=== PATIENT | female | born 1925 | race Caucasian/White ===

== ENCOUNTER 2017-04-04 13:05 | Inpatient (IN) | payer MEDICARE ==
[~2017-04-04] VITALS: Ht 157.5 cm; Wt 77.1 kg
--- NOTE | 2017-04-04 13:18 | NUR ---
BBPA FROM [facility]: BILATERAL LOWER EXTREMITIES REDNESS, LLE CELLULITIS
[2017-04-04 13:46] LABS: BASOPHILS % (AUTO) 0.2 % (0.0-2.0); EOSINOPHILS % (AUTO) 0.2 % (0.0-6.0); HEMATOCRIT 30 % (33-45); HEMOGLOBIN 9.5 g/dL (11.5-14.8); LYMPHOCYTES % (AUTO) 14.9 % (20.0-44.0); MEAN CORPUSCULAR HEMOGLOBIN 27 PG (26.0-33.0); MEAN CORPUSCULAR HGB CONC 32 g/dl (31.0-36.0); MEAN CORPUSCULAR VOLUME 85 fL (82-100); MONOCYTES # (AUTO) 0.9 /CMM (0.1-1.30); MONOCYTES % (AUTO) 6.3 % (2.0-12.0); NEUTROPHILS # (AUTO) 10.7 /CMM (1.8-8.9); NEUTROPHILS % (AUTO) 78.4 % (43.0-81.0); PLATELET COUNT (AUTO) 364 /CMM (150-450); RDW COEFFICIENT OF VARIATION 17.2 (11.5-15.0); RED BLOOD CELL COUNT(AUTO) 3.52 MIL/uL (4.0-5.2); WHITE BLOOD COUNT (AUTO) 13.6 K/uL (4.3-11.0)
[2017-04-04] MEDS ORDERED: SACC250C6 PO (13:47)
[2017-04-04] MEDS ORDERED: MULT1TAB11 PO (13:47)
[2017-04-04] MEDS ORDERED: CITA20TA11 PO (13:47)
[2017-04-04] MEDS ORDERED: MAGN400T26 PO (13:47)
[2017-04-04] MEDS ORDERED: ASPI81TA2 PO (13:47)
[2017-04-04] MEDS ORDERED: TRAM50TA2 PO ×2 (13:47)
[2017-04-04] MEDS ORDERED: PANT40TA4 PO (13:47)
[2017-04-04] MEDS ORDERED: ZINC220C8 PO (13:47)
[2017-04-04] MEDS ORDERED: AMIN30LI4 PO (13:47)
[2017-04-04] MEDS ORDERED: MAGN400O6 PO (13:47)
[2017-04-04] MEDS ORDERED: NA P133E RC (13:47)
[2017-04-04] MEDS ORDERED: ACET-868 PO (13:47)
[2017-04-04] MEDS ORDERED: MEGE40TA PO (13:47)
[2017-04-04] MEDS ORDERED: ASCO500T9 PO (13:47)
[2017-04-04] MEDS ORDERED: DOCU-25 PO (13:47)
[2017-04-04] MEDS ORDERED: ACET-2605 PO (13:47)
[2017-04-04] MEDS ORDERED: BISA10SU8 RC (13:47)
[2017-04-04] MEDS ORDERED: APIX2.5T PO (13:47)
[2017-04-04] MEDS ORDERED: METO25TA20 PO (13:47)
[2017-04-04 13:53] LABS: CARBON DIOXIDE 27 mmol/L (21-32); CHLORIDE 101 mmol/L (98-107); CREATININE 0.6 mg/dL (0.6-1.3); GLUCOSE 104 mg/dL (74-106); POTASSIUM 3.6 mmol/L (3.5-5.1); SODIUM SERUM 136 mmol/L (136-145); UREA NITROGEN, BLOOD 10 mg/dL (7-18)
[2017-04-04 14:01] LABS: TROPONIN I < 0.017 ng/mL (0.00-0.056)
[2017-04-04 14:02] LABS: INR 1.42 (0.87-1.13); PROTHROMBIN TIME 14.8 SECS (9.5-12.7)
[2017-04-04 14:05] LABS: ALANINE AMINOTRANSFERASE 10 U/L (12-78); ALBUMIN 1.6 g/dL (3.4-5.0); ALKALINE PHOSPHATASE 98 U/L (46-116); ASPARTATE AMINOTRANSFERASE 13 U/L (15-37); B-TYPE NATRIURETIC PEPTIDE 1616 PG/ML (0-125); BILIRUBIN,DIRECT 0.3 mg/dL (0.0-0.2); BILIRUBIN,TOTAL 0.6 mg/dL (0.2-1.0); TOTAL PROTEIN, SERUM 5.5 g/dL (6.4-8.2)
[2017-04-04] MEDS ORDERED: VANCOMYCIN 1 GM in IV D5W 250 ML IV ONE (14:30)
[2017-04-04] MEDS ORDERED: CEFEPIME 1 GM in IV D5W 50 ML IV ONE (14:30)
--- NOTE | 2017-04-04 15:21 | NUR ---
GAVE REPORT TO CLAUDIA PINEDA MEDSURG CELLULITIS DR MARQUEZ ROOM 315
[2017-04-04 15:30] VITALS: BP 145/72
[2017-04-04] MEDS ORDERED: FEE PK DOSING 1 MIN EA MC ONE (18:08)
[2017-04-04] MEDS ORDERED: LEVOFLOXACIN 500 MG /D5W 100ML 500 MG in PREMIX 1 EA IV ONE (18:30)
[2017-04-04] MEDS ORDERED: ONDANSETRON HCL/PF 4 MG/2 ML VIAL IVP PRN (18:30)
--- NOTE | 2017-04-04 19:20 | NUR ---
RN NOTES: PATIENT RECIEVED FROM ER. REPORT GIVEN BY ANA MARIA. PATIENT WAS ON OUR UNIT AT 1530. PATIENT STABLE. ALERT ORIENTED X3, WITH PERIODS OF CONFUSION. VS WNL. NONLABORED BREATHING ON ROOM AIR. PATIENT REFUSED FULL BODY ASSESSMENT. PATIENT REFUSED TO HAVE LEFT LOWER EXTREMITY ASSESSED AND REFUSED TO HAVE PICTURE TAKEN. PATIENT REFUSED TO HAVE CULTURE TAKEN OF WOUND, AND STATED "LEAVE ME ALONE! DONT TOUCH ME!". DR SEPULVEDA AWARE OF PATIENT'S ADMISSION AND LABS. DR SEPULVEDA ORDERED CARDIAC DIET. PATIENT REFUSED DINNER ORDERED. PATIENT WAS OFFERED LULU AND JUICE. SHE CONSUMED SIPS AND REFUSED. PATIENT KEPT CLEAN AND DRY. ENDORSED TO NEXT SHIFT
--- NOTE | 2017-04-04 19:30 | NUR ---
RN NOTES PATIENT IN BED ALERT ORIENTED X3, WITH PERIODS OF CONFUSION. VS STABLE.NO /O PAIN AT THIS TIME. RESPIRATIONS EVEN AND UNLABORED. NO SOB NOTED. IV ACCESS ON LUE PATENT AND INTACT. NO REDNESS AND INFILTRATION NOTED. STARTING MEDICATIONS PER MD ORDER. BED IN LOW POSITION. SIDE RAILSX2. CALL LIGHT WITHIN EASY REACH. WILL CONTINUE TO MONITOR.
[2017-04-04] MEDS: IV NS 0.9% 1,000 ML IV PRN (19:50)
[2017-04-04 20:00] VITALS: BP 147/61
[2017-04-04] MEDS ORDERED: ENOXAPARIN SODIUM 30 MG/0.3 ML DISP.SYRIN SQ SCH (20:00)
--- NOTE | 2017-04-04 21:05 | NUR ---
RN NOTES CLARIFIED WITH DR. SEPULVEDA LOVENOX ORDER. PER MD VELÁSQUEZ TO GIVE LOVENOX 30 MG SQ.
--- NOTE | 2017-04-05 07:00 | NUR ---
RN CLOSING NOTES PATIENT IS IN BED SLEEPING ALERT ORIENTED X3, WITH PERIODS OF CONFUSION. VS STABLE. NO /O PAIN AT THIS TIME. RESPIRATIONS EVEN AND UNLABORED. NO SOB NOTED. IV ACCESS ON LUE PATENT AND INTACT. INFUSING NS 75 ML/HR. NO REDNESS AND INFILTRATION NOTED. ALL MEDICATIONS GIVING PER MD ORDER. BED IN LOW POSITION. SIDE RAILSX2. CALL LIGHT WITHIN EASY REACH. WILL ENDORSE TO RN DAY SHIFT FOR CONTINUITY OF CARE.
--- NOTE | 2017-04-05 07:20 | NUR ---
MS RN OPENING NOTES PT RECEIVED AWAKE IN BED IN NO ACUTE SIGNS OF DISTRESS. A/O X3, SAME VERBALLY RESPONSIVE, DENIES PAIN OR DISCOMFORTS AT THIS TIME. ON ROOM AIR, BREATHING EVEN AND UNLABORED. IV ACCESS ON CANDIS INTACT AND PATENT WITH IVF OF NS @ 75ML INFUSING WELL, NO SIGNS OF INFILTRATION NOTED. BED IN LOW AND LOCKED POSITION WITH SIDE-RAILS UP X 2. CALL LIGHT WITHIN REACH. WILL CONTINUE TO MONITOR ACCORDINGLY.
[2017-04-05] MEDS ORDERED: PANTOPRAZOLE 40 MG TABLET.DR PO SCH (07:30)
[2017-04-05 08:00] VITALS: BP 155/65
--- NOTE | 2017-04-05 08:58 | NUR ---
WOUND CARE CONSULT: PT SCREAMING AND AGITATED, REFUSED SKIN ASSESSMENT. PT NOTED TO HAVE DEEP TISSUE INJURY INTACT TO LEFT HEEL AND WEEPING AREAS TO LEFT LATERAL HIP AND THIGH. PT WOULD NOT ALLOW REMOVAL OF LEFT LOWER LEG DRESSING AND WOULD NOT TURN FOR FULL SKIN ASSESSMENT. RECOMMENDATIONS MADE BASED ON PHOTO AND NURSING DOCUMENTATION. ISOFLEX LOW AIRLOSS BED TO BE PLACED. DISCUSSED ALL SKIN PROTECTION AND WOUND RECOMMENDATIONS WITH NURSING STAFF. WILL SEE PRN. FROST IN AGREEMENT WITH PLAN OF CARE. Addendum: 04/05/17 at 0906 by ALEJO COOK WNDNU PT NOTED TO HAVE 3+ PITTING EDEMA TO LOWER LEGS. LEGS ELEVATED.
--- NOTE | 2017-04-05 09:12 | NUR ---
RN NOTES SEEN BY WOUND NURSE BUT PT WAS AGITATED AND NON-COOPERATIVE, SAME REFUSED FULL SKIN ASSESSMENT. WILL CONTINUE TO MONITOR
[2017-04-05] MEDS: DOCUSATE SODIUM 100 MG CAPSULE PO SCH ×2 (09:30→17:00)
[2017-04-05] MEDS: METOPROLOL TARTRATE 25 MG TABLET PO SCH ×2 (09:30→17:25)
[2017-04-05] MEDS ORDERED: MAGNESIUM HYDROXIDE 30 ML UDC PO PRN (09:30)
[2017-04-05] MEDS ORDERED: Medication Not On Formulary EA (Saccharomyces Boulardii (Florastor) 250 MG) PO SCH (09:30)
[2017-04-05] MEDS ORDERED: Z GUARD REMEDY 2 OZ OINT TP PRN (09:30)
[2017-04-05] MEDS: APIXABAN 2.5 MG TABLET PO SCH ×2 (09:30→21:26)
[2017-04-05] MEDS: MAGNESIUM OXIDE 400 MG TABLET PO SCH (09:30)
[2017-04-05] MEDS: ZINC SULFATE 220 MG CAPSULE PO SCH (09:30)
[2017-04-05] MEDS ORDERED: HYDROGEL DRESSING 90 GM TUBE TP PRN (09:30)
[2017-04-05] MEDS: ASCORBIC ACID 500 MG TABLET PO SCH ×2 (09:30→17:00)
[2017-04-05] MEDS: PANTOPRAZOLE 40 MG TABLET.DR PO SCH (09:30)
[2017-04-05] MEDS: MEGESTROL ACETATE 40 MG TABLET PO SCH ×4 (09:30→21:11)
[2017-04-05] MEDS ORDERED: NA PHOS,M-B/NA PHOS,DI-BA 1 EA ENEMA RC PRN (09:30)
[2017-04-05] MEDS ORDERED: BISACODYL SUPP (10 MG) 10 MG/SUPP.RECT SUPP.RECT RC PRN (09:30)
[2017-04-05] MEDS ORDERED: ACETAMINOPHEN 325 MG TABLET PO PRN (09:30)
[2017-04-05] MEDS: CITALOPRAM HYDROBROMIDE 20 MG TABLET PO SCH (10:30)
[2017-04-05] MEDS: ASPIRIN 81 MG TAB.CHEW PO SCH (10:30)
[2017-04-05] MEDS: TRAMADOL HCL 50 MG TABLET PO SCH (10:30)
[2017-04-05] MEDS: Z GUARD REMEDY 2 OZ OINT TP SCH (10:32)
--- NOTE | 2017-04-05 11:55 | NUR ---
RN NOTES PATIENT REFUSED MOST OF HER MORNING P.O. MEDS DESPITE ENCOURAGEMENT AND EXPLAINING THE BENEFITS/IMPORTANCE OF TAKING THEM. WILL CONTINUE TO MONITOR.
[2017-04-05] MEDS: HYDROGEL DRESSING 90 GM TUBE TP SCH (11:56)
[2017-04-05 12:44] LABS: CALCIUM, SERUM 7.7 mg/dL (8.5-10.1); CARBON DIOXIDE 24 mmol/L (21-32); CHLORIDE 102 mmol/L (98-107); CREATININE 0.4 mg/dL (0.6-1.3); GLUCOSE 94 mg/dL (74-106); MAGNESIUM 1.5 mg/dL (1.8-2.4); PHOSPHORUS 2.7 mg/dL (2.5-4.9); POTASSIUM 3.3 mmol/L (3.5-5.1); SODIUM SERUM 134 mmol/L (136-145); UREA NITROGEN, BLOOD 7 mg/dL (7-18)
--- NOTE | 2017-04-05 13:55 | NUR ---
RN NOTES PT NOTED WITH LOW MG 1.5 AND TO BE REPLACED WITH 1MG/100ML D5W X 2 BAGS. LOW POTASSIUM 3.3 AND TO BE REPLACED WITH KLOR CON POWDER 20MEQ. WILL CONTINUE TO MONITOR.
[2017-04-05] MEDS ORDERED: POTASSIUM CHLORIDE 20 MEQ POWDER PACKET NG SCH (14:00)
[2017-04-05] MEDS: Magnesium 1GM/D5W 100ML PREMIX 100 ML IV SCH ×2 (14:06→15:03)
[2017-04-05] MEDS ORDERED: VANCOMYCIN 0.75 GM in IV D5W 250 ML IV SCH (15:00)
[2017-04-05 16:00] VITALS: BP 138/60
[2017-04-05] MEDS: VANCOMYCIN 1 GM in IV D5W 250 ML IV SCH (16:17)
[2017-04-05] MEDS: LACTOBACILLUS RHAMNOSUS GG 1 EACH CAP.SPRINK PO SCH (17:00)
--- NOTE | 2017-04-05 19:37 | NUR ---
MS RN CLOSING NOTES PT AWAKE AND RESTING IN BED AT MODERTAE HIGH BACK REST POSITION. A/O X3, SAME VERBALLY RESPONSIVE. PT CONFUSED AT TIMES AND NON-COOPERATIVE WITH CARE. ON ROOM AIR, TOLERATING WELL WITH NO SOB NOTED DURING THE DAY. IV ACCESS ON CANDIS INTACT AND PATENT WITH IVF OF NS @ 75ML INFUSING WELL, NO SIGNS OF INFILTRATION NOTED. KEPT BED IN LOW AND LOCKED POSITION WITH SIDE-RAILS UP X 2. CALL LIGHT WITHIN REACH. ENDORSED TO NIGHTSHIFT NURSE FOR KYUNG.
--- NOTE | 2017-04-05 19:50 | NUR ---
RN OPENING NOTES RECEIVED REPORT FROM ANNIEIAFT RNALTAGRACIA. FOUND PT AWAKE IN BED. NO S/S OF ACUTE DISTRESS OR SOB NOTED. EQUAL CHEST RISE AND FALL. Pt IS A/OX2-3, CONFUSED AT TIMES, AND FORGETFUL, BUT IS VERBAL, ABLE TO MAKE NEEDS KNOWN. Pt IS PALA, NEED TO SPEAK UP CLOSE. IV ACCESS ON LAC #20G, IVF NS @75ML/HR. SAFETY MEASURES IN PLACE. BED LOW, LOCKED, HOB ELEVATED, SIDE RAILS UP, CALL LIGHT WITHIN REACH. BED ALARM ON. WILL CONTINUE TO MONITOR Pt FOR SAFETY.
[2017-04-05 20:00] VITALS: BP 163/63
[2017-04-05] MEDS: LEVOFLOXACIN 250 MG /D5W 50 ML 250 MG in PREMIX 1 EA IV SCH (21:10)
[2017-04-05 23:03] LABS: BASOPHILS % (AUTO) 0.3 % (0.0-2.0); EOSINOPHILS % (AUTO) 0.3 % (0.0-6.0); HEMATOCRIT 25 % (33-45); HEMOGLOBIN 8.1 g/dL (11.5-14.8); LYMPHOCYTES # (AUTO) 1.6 /CMM (0.8-4.8); LYMPHOCYTES % (AUTO) 22.2 % (20.0-44.0); MEAN CORPUSCULAR HEMOGLOBIN 27 PG (26.0-33.0); MEAN CORPUSCULAR HGB CONC 32 g/dl (31.0-36.0); MEAN CORPUSCULAR VOLUME 83 fL (82-100); MONOCYTES # (AUTO) 0.5 /CMM (0.1-1.30); NEUTROPHILS # (AUTO) 4.9 /CMM (1.8-8.9); NEUTROPHILS % (AUTO) 70.2 % (43.0-81.0); PLATELET COUNT (AUTO) 306 /CMM (150-450); RED BLOOD CELL COUNT(AUTO) 3.01 MIL/uL (4.0-5.2)
--- NOTE | 2017-04-06 06:54 | NUR ---
RN CLOSING NOTES NO SIGNIFICANT CHANGES IN Pt's CONDITION. Pt REMAINS STABLE AT THIS TIME. NO S/S OF ACUTE DISTRESS OR SOB NOTED DURING SHIFT. ALL NEEDS MET AND ATTENDED TO. SAFETY MEASURES IN PLACE. WILL ENDORSE TO DAYSHIFT RN FOR Pt's KYUNG.
--- NOTE | 2017-04-06 07:23 | NUR ---
MS/RN OPENING NOTES PT RECEIVED AWAKE IN BED IN NO ACUTE SIGNS OF DISTRESS. HOB ELEVATED. A/O X3, VERBALLY RESPONSIVE, CONFUSED AND FORGETFUL, DENIES PAIN OR DISCOMFORTS AT THIS TIME. ON ROOM AIR, BREATHING EVEN AND UNLABORED. IV ACCESS ON CANDIS INTACT AND PATENT WITH IVF OF NS @ 75ML INFUSING WELL, NO SIGNS OF INFILTRATION NOTED. BED IN LOW AND LOCKED POSITION WITH SIDE-RAILS UP X 2. CALL LIGHT WITHIN REACH. WILL CONTINUE TO MONITOR PT ACCORDINGLY.
[2017-04-06] MEDS: IV NS 0.9% 1,000 ML IV PRN (07:59)
[2017-04-06 08:00] VITALS: BP 163/65
[2017-04-06] MEDS: APIXABAN 2.5 MG TABLET PO SCH ×2 (08:31→21:00)
[2017-04-06] MEDS: ASPIRIN 81 MG TAB.CHEW PO SCH (08:32)
[2017-04-06] MEDS: MAGNESIUM OXIDE 400 MG TABLET PO SCH (08:32)
[2017-04-06] MEDS: PANTOPRAZOLE 40 MG TABLET.DR PO SCH (08:32)
[2017-04-06] MEDS: METOPROLOL TARTRATE 25 MG TABLET PO SCH ×2 (08:33→16:38)
[2017-04-06] MEDS: TRAMADOL HCL 50 MG TABLET PO SCH (08:34)
[2017-04-06] MEDS: CITALOPRAM HYDROBROMIDE 20 MG TABLET PO SCH (08:37)
[2017-04-06] MEDS: ZINC SULFATE 220 MG CAPSULE PO SCH (08:39)
[2017-04-06] MEDS: LACTOBACILLUS RHAMNOSUS GG 1 EACH CAP.SPRINK PO SCH ×2 (08:39→16:38)
[2017-04-06] MEDS: MEGESTROL ACETATE 40 MG TABLET PO SCH ×4 (08:41→21:00)
[2017-04-06] MEDS: MULTIVIT, IRON, MIN NO. 8, FA 1 TAB PO SCH (08:41)
[2017-04-06] MEDS: ASCORBIC ACID 500 MG TABLET PO SCH ×2 (08:41→16:38)
[2017-04-06] MEDS: DOCUSATE SODIUM 100 MG CAPSULE PO SCH ×2 (08:41→16:38)
[2017-04-06] MEDS: Z GUARD REMEDY 2 OZ OINT TP SCH (09:40)
[2017-04-06] MEDS: NEOMY SULF/BACITRAC ZN/POLY 15 GM TUBE TP SCH (09:40)
[2017-04-06] MEDS: HYDROGEL DRESSING 90 GM TUBE TP SCH (09:40)
[2017-04-06 12:12] LABS: CALCIUM, SERUM 7.8 mg/dL (8.5-10.1); CARBON DIOXIDE 25 mmol/L (21-32); CHLORIDE 102 mmol/L (98-107); CREATININE 0.4 mg/dL (0.6-1.3); GLUCOSE 85 mg/dL (74-106); MAGNESIUM 1.8 mg/dL (1.8-2.4); POTASSIUM 3.2 mmol/L (3.5-5.1); SODIUM SERUM 136 mmol/L (136-145); UREA NITROGEN, BLOOD 4 mg/dL (7-18)
--- NOTE | 2017-04-06 13:03 | NUR ---
RN NOTES PATIENT NOTED WITH LOW POTASSIUM LEVEL 3.2, MD MADE AWARE WITH ORDER TO GIVE KCL 40MEQ IVPB. WILL CONTINUE TO MONITOR
[2017-04-06] MEDS: POTASSIUM CL. PREMIX PERIPHER. 50 ML IV SCH ×4 (14:00→17:58)
[2017-04-06] MEDS ORDERED: MORPHINE SULFATE INJ 2 MG/ML DISP.SYRIN IV PRN (15:00)
[2017-04-06] MEDS ORDERED: MORPHINE SULFATE INJ 10 MG/ML DISP.SYRIN IV PRN (15:30)
[2017-04-06 16:00] VITALS: BP 157/70
[2017-04-06] MEDS: VANCOMYCIN 1 GM in IV D5W 250 ML IV SCH (16:17)
--- NOTE | 2017-04-06 18:52 | NUR ---
M/RN CLOSING NOTES PT RESTING AT MODERATE HIGH BACKREST IN BED. A/O X2-3, SAME VERBALLY RESPONSIVE WITH PERIODS OF CONFUSION AND FORGETFULNESS NOTED DURING THE DAY. ON ROOM AIR, TOLERATING WELL WITH NO SOB NOTED THROUGHOUT THE DAY. IV ACCESS ON LAC INTACT AND PATENT WITH IVF OF NS @ 75ML INFUSING WELL, NO SIGNS OF INFILTRATION NOTED. KEPT BED IN LOW AND LOCKED POSITION WITH SIDE-RAILS UP X 2. CALL LIGHT WITHIN REACH. PT TURNED AND REPOSITIONED Q 2HRS AND PRN. WILL ENDORSED TO NIGHTSHIFT NURSE FOR KYUNG.
--- NOTE | 2017-04-06 19:45 | NUR ---
RN OPENING NOTES RECEIVED REPORT FROM DAYSHIFT MIRIAM FRIAS. FOUND Pt ASLEEP IN BED. NO S/S OF ACUTE DISTRESS OR SOB NOTED. EQUAL CHEST RISE AND FALL, WITH UNLABORED BREATHING. Pt IS A/OX2-3, CONFUSED AT TIMES, BUT IS VERBAL, AND ABLE TO MAKE NEEDS KNOWN. NO SIGNS OF PAIN AT THIS TIME. Pt HAS BEEN KNOWN TO BE NON-COMPLIANT WITH PO MEDS. IV ACCESS ON LAC #20G, IVF NS @75ML/HR. SAFETY MEASURES IN PLACE. BED LOW, LOCKED, HOB ELEVATED, SIDE RAILS UP, CALL LIGHT AND BEDSIDE TABLE WITHIN REACH. WILL CONTINUE TO MONITOR Pt THROUGHOUT THE NIGHT FOR SAFETY.
[2017-04-06 20:00] VITALS: BP 139/72
[2017-04-06] MEDS: LEVOFLOXACIN 250 MG /D5W 50 ML 250 MG in PREMIX 1 EA IV SCH (21:30)
[2017-04-07] MEDS: IV NS 0.9% 1,000 ML IV PRN (03:21)
--- NOTE | 2017-04-07 06:43 | NUR ---
RN CLOSING NOTES NO SIGNIFICANT CHANGES IN Pt's CONDITION DURING THE SHIFT. Pt REMAINS STABLE. NO S/S OF ACUTE DISTRESS OR SOB NOTED DURING THE NIGHT. ALL NEEDS MET AND ATTENDED TO. SAFETY MEASURES IN PLACE. WILL ENDORSE TO DAYSHIFT RN FOR Pt's KYUNG.
--- NOTE | 2017-04-07 07:35 | NUR ---
RN OPENING NOTES PT. IN BED A&OX1-2, CONFUSED. NO S/S OF SOB, BREATHING ON ROOM AIR UNLABORED, AND EVENLY. IV FLUIDS RUNNING. BED IS IN LOWEST, LOCKED POSITION, 2 SIDE RAILS UP, AND INSTRUCTED PT. TO USE CALL LIGHT FOR ASSISTANCE. WILL CONTINUE TO ASSESS AND MONITOR.
[2017-04-07] MEDS: ASCORBIC ACID 500 MG TABLET PO SCH ×2 (09:00→18:31)
[2017-04-07] MEDS: MULTIVIT, IRON, MIN NO. 8, FA 1 TAB PO SCH (09:00)
[2017-04-07] MEDS: Z GUARD REMEDY 2 OZ OINT TP SCH (09:00)
[2017-04-07] MEDS: ZINC SULFATE 220 MG CAPSULE PO SCH (11:20)
[2017-04-07] MEDS: MEGESTROL ACETATE 40 MG TABLET PO SCH ×4 (11:20→21:00)
[2017-04-07] MEDS: DOCUSATE SODIUM 100 MG CAPSULE PO SCH ×2 (11:20→17:00)
[2017-04-07] MEDS: MAGNESIUM OXIDE 400 MG TABLET PO SCH (11:20)
[2017-04-07] MEDS: CITALOPRAM HYDROBROMIDE 20 MG TABLET PO SCH (11:20)
[2017-04-07] MEDS: ASPIRIN 81 MG TAB.CHEW PO SCH (11:21)
[2017-04-07] MEDS: TRAMADOL HCL 50 MG TABLET PO SCH (11:21)
[2017-04-07] MEDS: PANTOPRAZOLE 40 MG TABLET.DR PO SCH (11:21)
[2017-04-07] MEDS: LACTOBACILLUS RHAMNOSUS GG 1 EACH CAP.SPRINK PO SCH ×2 (11:21→17:00)
[2017-04-07] MEDS: APIXABAN 2.5 MG TABLET PO SCH ×2 (11:22→18:38)
[2017-04-07] MEDS: METOPROLOL TARTRATE 25 MG TABLET PO SCH ×2 (11:22→17:00)
[2017-04-07] MEDS: NEOMY SULF/BACITRAC ZN/POLY 15 GM TUBE TP SCH (11:23)
[2017-04-07] MEDS: HYDROGEL DRESSING 90 GM TUBE TP SCH (11:23)
[2017-04-07 16:00] VITALS: BP 144/55
--- NOTE | 2017-04-07 16:00 | NUR ---
RN NOTES WOUND CARE AND DRESSING CHANGE WAS PERFORMED PER MD ORDERS.
[2017-04-07] MEDS: VANCOMYCIN 1 GM in IV D5W 250 ML IV SCH (16:42)
--- NOTE | 2017-04-07 17:30 | NUR ---
RN NOTES PT. REFUSED HAVING BLOOD DRAWN FOR LAB WORK.
[2017-04-07] MEDS: PIPERACILLIN /TAZOBACTAM 2.25 G in IV D5W 50 ML IV SCH ×2 (18:23→23:42)
--- NOTE | 2017-04-07 19:35 | NUR ---
RN CLOSING NOTES PT. IN BED A&OX1-2, CONFUSED. NO S/S OF SOB, BREATHING ON ROOM AIR UNLABORED, AND EVENLY.IV FLUIDS RUNNING. BED IS IN LOWEST, LOCKED POSITION, 2 SIDE RAILS UP, AND INSTRUCTED PT. TO USE CALL LIGHT FOR ASSISTANCE. WILL CONTINUE TO ASSESS AND MONITOR.
--- NOTE | 2017-04-07 19:49 | NUR ---
MS/RN OPENING NOTES PATIENT IN BED, RESTING COMFORTABLY IN BED, ABLE TO RESPOND WITH SHORT ANSWER AND STATED SHE WANT TO REST AND NOT TO BE DISTURB AT THIS TIME.RESPIRATION EVEN AND UNLABORED. RECEIVED ENDORSEMENT FROM AM RN . ISOLATION PRECAUTION FOLLOWED FOR ESBL URINE HX. WILL CONTINUE TO MONITOR.
--- NOTE | 2017-04-07 20:10 | NUR ---
MS/RN NOTES DR COLVIN WAS MADE AWARE REGARDING PATIENT NON COMPLIANT TO CARE, REFUSE TO HAVE VITAL SIGNS BE CHECK, REFUSE PO ORAL MEDS,PROVIDED EDUCATION REGARDING PROS/CON OF NOT TAKING THE MED. PATIENT VERBALIZED UNDERSTANDING, WILL MONITOR FOR ANY CHANGES.
--- NOTE | 2017-04-08 02:29 | NUR ---
ms/rn notes PATIENT REFUSED TO BE REPOSITION AND TO HAVE WOUND TREATMENT. INFORM THE RISK/BENEFIT. VERBALIZED UNDERSTANDING. WILL CHECK AND ASK AGAIN.
--- NOTE | 2017-04-08 04:39 | NUR ---
MS/RN NOTES PATIENT PROVIDED WARM BLANKET, ELEVATED FEET AND ASKED AGAIN IF CAN DO WOUND CARE DRESSING ON LEFT LEG, PATIENT VERBALIZED W/ LOUD SCREAM, "NO" AND UNABLE TO PROVIDE CARE AT THIS TIME. WILL MONITOR. INFORMED CHARGED NURSE RE SITUATION,
[2017-04-08] MEDS: PIPERACILLIN /TAZOBACTAM 2.25 G in IV D5W 50 ML IV SCH ×3 (05:13→17:05)
--- NOTE | 2017-04-08 06:26 | NUR ---
MS/RN NOTES PATIENT REFUSED TO HAVE LAB DRAW THIS AM, WILL FOLLOW UP WITH AM RN FOR SON TO BE MADE AWARE.
--- NOTE | 2017-04-08 06:31 | NUR ---
MS/RN NOTES PATIENT RESTING COMFORTABLY IN BED. SLEPT DURING THE NIGHT. MONITORING FOR ANY CHANGES AND IV ATB ADMINISTERES. REFUSE TO TAKE PO MEDICATIONS. MD MADE AWARE. IN ON LEFT AC W/ NO S/S OF INFILTRATION,INFORM PATIENT TO HAVE ARM EXTENSDED FOR IV TO CONTINUE RUNNING. MONITORING PATIENT AND TWILL ENDORSE AM RN FOR YKUNG.
[2017-04-08] MEDS: PANTOPRAZOLE 40 MG TABLET.DR PO SCH ×2 (07:30→11:12)
[2017-04-08] MEDS: METOPROLOL TARTRATE 25 MG TABLET PO SCH ×3 (09:00→16:57)
[2017-04-08] MEDS: DOCUSATE SODIUM 100 MG CAPSULE PO SCH ×3 (09:00→16:56)
[2017-04-08] MEDS: ZINC SULFATE 220 MG CAPSULE PO SCH ×2 (09:00→11:11)
[2017-04-08] MEDS: MULTIVIT, IRON, MIN NO. 8, FA 1 TAB PO SCH ×2 (09:00→11:12)
[2017-04-08] MEDS: TRAMADOL HCL 50 MG TABLET PO SCH ×2 (09:00→11:13)
[2017-04-08] MEDS: ASPIRIN 81 MG TAB.CHEW PO SCH ×2 (09:00→11:14)
[2017-04-08] MEDS: ASCORBIC ACID 500 MG TABLET PO SCH ×3 (09:00→16:57)
[2017-04-08] MEDS: LACTOBACILLUS RHAMNOSUS GG 1 EACH CAP.SPRINK PO SCH ×3 (09:00→16:57)
[2017-04-08] MEDS: MAGNESIUM OXIDE 400 MG TABLET PO SCH ×2 (09:00→11:14)
[2017-04-08] MEDS: MEGESTROL ACETATE 40 MG TABLET PO SCH ×5 (09:00→21:00)
--- NOTE | 2017-04-08 09:18 | NUR ---
RN Notes Patient still prefers to sleep; breakfast and medications not taken yet. Taking Vital signs refused too at this time. Dr Mcdermott was at the bedside around 8 AM, made him aware of the patient's non compliance to medication, nursing procedures as well as plan of care. Will cont to offer patient medication, food and care later.
[2017-04-08] MEDS: CITALOPRAM HYDROBROMIDE 20 MG TABLET PO SCH (11:11)
[2017-04-08] MEDS: HYDROGEL DRESSING 90 GM TUBE TP SCH (11:15)
[2017-04-08] MEDS: Z GUARD REMEDY 2 OZ OINT TP SCH (11:16)
[2017-04-08] MEDS: NEOMY SULF/BACITRAC ZN/POLY 15 GM TUBE TP SCH (11:16)
[2017-04-08] MEDS: APIXABAN 2.5 MG TABLET PO SCH ×2 (11:20→21:40)
--- NOTE | 2017-04-08 19:19 | NUR ---
RN Notes Resting well with no complain at this time. Needs anticipated. No untoward symptom noted within the shift. Will endorse to night time babysitter nurse for continuity of care.
--- NOTE | 2017-04-08 19:30 | NUR ---
MS/RN RECEIVE PATIENT AWAKE, ALERT, ORIENTED, COMFORTABLE, NO C/O PAIN, NO DISTRESS NOTED, CALL LIGHT IN REACH. FALL PRECAUTION PER PROTOCOL.
[2017-04-08 20:00] VITALS: BP 146/57
--- NOTE | 2017-04-08 23:02 | NUR ---
MS/RN PATIENT IS SLEEPING AT THIS TIME, AROUSABLE, APPEAR COMFORTABLE, BREATHING EVEN AND UNLABORED, CALL LIGHT WITHIN REACH. WILL CONTINUE TO MONITOR.
[2017-04-09] MEDS: PIPERACILLIN /TAZOBACTAM 2.25 G in IV D5W 50 ML IV SCH ×3 (00:14→11:22)
--- NOTE | 2017-04-09 04:54 | NUR ---
MS/RN MORNING CARE WAS DONE, TOTAL LINEN CHANGE DONE, REPOSITIONED TO COMFORT. WILL CONTINUE TO MONITOR.
--- NOTE | 2017-04-09 06:17 | NUR ---
MS/RN PATIENT AWAKE, ALERT, COMFORTABLE, NO CHANGE IN CONDITION. PATIENT MOST OF THE TIME REFUSED TO CHANGE POSITION. ALL NEEDS ATTENDED AT THIS TIME. WILL CONTINUE TO MONITOR.
--- NOTE | 2017-04-09 06:30 | NUR ---
MS/RN PATIENT REFUSED BLOOD DRAW. DANCE PROFESSOR WILL COME BACK TO F/U.
[2017-04-09 08:00] VITALS: BP 167/72
--- NOTE | 2017-04-09 08:02 | NUR ---
MS RN: INITIAL NOTE RECEIVED PT A/OX1. NON-COMPLIANT AND DOES NOT WANT LABS TO BE DRAWN. ALL RISKS AND BENEFITS EXPLAINED. ON ROOM AIR SATING AT 97%. MECHANICAL SOFT DIET. HL ON L HAND. NO IV FLUIDS RUNNING. NO DISTRESS. NO PAIN NOTED. ON CONTACT ISOLATION FOR ESBL OF WOUND. RESTING COMFORTABLY IN BED. CALL LIGHT WITHIN REACH.
[2017-04-09] MEDS: APIXABAN 2.5 MG TABLET PO SCH (08:38)
[2017-04-09] MEDS: PANTOPRAZOLE 40 MG TABLET.DR PO SCH (08:38)
[2017-04-09] MEDS: MULTIVIT, IRON, MIN NO. 8, FA 1 TAB PO SCH (08:39)
[2017-04-09] MEDS: TRAMADOL HCL 50 MG TABLET PO SCH (08:39)
[2017-04-09] MEDS: ASPIRIN 81 MG TAB.CHEW PO SCH (08:39)
[2017-04-09] MEDS: MEGESTROL ACETATE 40 MG TABLET PO SCH ×2 (08:39→12:23)
[2017-04-09] MEDS: CITALOPRAM HYDROBROMIDE 20 MG TABLET PO SCH (08:39)
[2017-04-09] MEDS: DOCUSATE SODIUM 100 MG CAPSULE PO SCH (08:39)
[2017-04-09 08:40] VITALS: BP 167/72
[2017-04-09] MEDS: ASCORBIC ACID 500 MG TABLET PO SCH (08:40)
[2017-04-09] MEDS: LACTOBACILLUS RHAMNOSUS GG 1 EACH CAP.SPRINK PO SCH (08:40)
[2017-04-09] MEDS: MAGNESIUM OXIDE 400 MG TABLET PO SCH (08:40)
[2017-04-09] MEDS: ZINC SULFATE 220 MG CAPSULE PO SCH (08:40)
[2017-04-09] MEDS: METOPROLOL TARTRATE 25 MG TABLET PO SCH (08:40)
[2017-04-09] MEDS: Z GUARD REMEDY 2 OZ OINT TP SCH (08:41)
[2017-04-09] MEDS: NEOMY SULF/BACITRAC ZN/POLY 15 GM TUBE TP SCH (08:41)
[2017-04-09] MEDS: HYDROGEL DRESSING 90 GM TUBE TP SCH (08:50)
[2017-04-09] MEDS ORDERED: CADEXOMER IODINE 40 GM TUBE TP SCH (09:00)
--- NOTE | 2017-04-09 10:00 | NUR ---
WOUND CARE DONE ORDERED BY .
--- NOTE | 2017-04-09 16:08 | NUR ---
MS RN: DISCHARGE NOTE PT DISCHARGED TO [facility] FOR CONTINUING OF CARE. ON CONTACT ISOLATION FOR ESBL OF WOUND. PT A/OX1. CONFUSED. TOOK ALL MEDICATIONS ON TIME. NO ADVERSE REACTIONS NOTED. NO PAIN NOTED. NO SOB NOTED. ON ROOM AIR SATING AT 96%. WOUND CARE DONE ON L.LOWER LEG, SACRA, HEEL AND L HIP/THIGH. ALL DRESSING INTACT AND IN PLACE. HL ON L HAND #24 D/C. SITE CLEAR, NO BLEEDING, NO INFILTRATION NOTED. ALL DISCHARGE SUMMARIES AND BELONGINGS LIST SIGNED BY TWO RNS DUE TO PTS INABILITY TO SIGN. ALL DISCHARGE INFORMATION GIVEN TO EMT TO DELIVER TO SNF. NOTIFIED SON BILL ABOUT TRANSFER. ALL BELONGINGS ACCOUNTED FOR. HOME MEDS GIVEN TAKEN FROM HOSPITAL PHARMACY AND GIVEN TO EMT. REPORT GIVEN TO NAVI (MIRIAM) IN [facility]. LEFT VIA AMBULANCE WITH TWO EMT.
== END 2017-04-09 16:00 | DRG 871 ==
LOC: ER 13:09 → MED 15:03
PROVIDERS: ADMIT Legal Medicine; ATTEND Legal Medicine
DX: A41.9 Sepsis, unspecified organism (principal); R53.2 Functional quadriplegia; G93.41 Metabolic encephalopathy; L89.159 Pressure ulcer of sacral region, unspecified stage; E44.0 Moderate protein-calorie malnutrition; I11.0 Hypertensive heart disease with heart failure; D68.59 Other primary thrombophilia; I50.32 Chronic diastolic (congestive) heart failure; E88.09 Other disorders of plasma-protein metabolism, not elsewhere classified; L03.116 Cellulitis of left lower limb; I83.228 Varicose veins of left lower extremity with both ulcer of other part of lower extremity and inflammation; L97.829 Non-pressure chronic ulcer of other part of left lower leg with unspecified severity; L89.620 Pressure ulcer of left heel, unstageable; I48.91 Unspecified atrial fibrillation; D63.8 Anemia in other chronic diseases classified elsewhere; E87.6 Hypokalemia; F03.90 Unspecified dementia, unspecified severity, without behavioral disturbance, psychotic disturbance, mood disturbance, and anxiety; I25.10 Atherosclerotic heart disease of native coronary artery without angina pectoris; K21.9 Gastro-esophageal reflux disease without esophagitis; Z79.01 Long term (current) use of anticoagulants; Z91.19 Patient's noncompliance with other medical treatment and regimen; Z88.0 Allergy status to penicillin; Z88.2 Allergy status to sulfonamides; Z68.31 Body mass index [BMI] 31.0-31.9, adult
CPT/HCPCS: 36415; 71010-TC; 73590-TC; 80048-TC; 80076-TC; 83605-TC; 83735-TC; 83880; 84100-TC; 84484-TC; 85025-TC; 85730-TC; 87040-TC; 87070-TC; 87081-TC; 87186-TC; 92521; A4216; A6248; A6253; A6402; A6403; J0692; J1650; J1956; J2270; J2543; J3370; J3475; J3480; J7030; J7060; Z7610

== ENCOUNTER 2017-04-18 10:12 | Inpatient (IN) | payer MEDICARE ==
[~2017-04-18] VITALS: Ht 162.6 cm; Wt 70.3 kg
[~2017-04-18 10:12] MED LIST: ACET-2605 PO; ACET-868 PO; AMIN30LI4 PO; APIX2.5T PO; ASCO500T9 PO; ASPI81TA2 PO; BISA10SU8 RC; CITA20TA11 PO; DOCU-25 PO; MAGN400O6 PO; MAGN400T26 PO; MEGE40TA PO; METO25TA20 PO; MULT1TAB11 PO; NA P133E RC; PANT40TA4 PO; SACC250C6 PO; TRAM50TA2 PO; ZINC220C8 PO
[2017-04-18] MEDS ORDERED: VANCOMYCIN 1 GM in IV D5W 250 ML IV ONE (10:30)
[2017-04-18] MEDS ORDERED: HYDROMORPHONE 1 MG/1 ML DISP.SYRIN IV ONE (10:30)
[2017-04-18] MEDS ORDERED: ONDANSETRON HCL/PF 4 MG/2 ML VIAL IVP ONE (10:30)
[2017-04-18] MEDS ORDERED: CEFTAZIDIME 1 G in IV D5W 50 ML IV ONE (10:30)
[2017-04-18] MEDS ORDERED: IV NS 0.9% 1,000 ML BAG IV ONE (10:30)
--- NOTE | 2017-04-18 10:30 | NUR ---
DR. WILDE IS AT THE BEDSIDE. LLE WOUND UNDRESSED AND PURULENT DRAINAGE NOTED OOZING FROM WOUND. BLE PITTING EDEMA, PRESSURE WOUND ON BUTTOCK, LT THIGH WOUND.
[2017-04-18] MEDS ORDERED: ONDANSETRON HCL/PF 4 MG/2 ML VIAL ONE (10:38)
[2017-04-18] MEDS ORDERED: DOXY100C2 PO (10:47)
[2017-04-18] MEDS ORDERED: MIRT7.5T10 PO (10:47)
--- NOTE | 2017-04-18 10:55 | NUR ---
3 ATTEMPTS AT IV INSERTION UNSUCCESSFUL. CALLING MIDLINE NURSE.
--- NOTE | 2017-04-18 10:59 | NUR ---
NURSING FOURTH GRADE TEACHER TOLD ABOUT MIDLINE.
--- NOTE | 2017-04-18 11:04 | NUR ---
Jenny TRACIE AT THE BEDSIDE FOR DRAW.
--- NOTE | 2017-04-18 11:25 | NUR ---
BLOOD CULTURE X1 OBTAINED BY DRY PLASTERER HELPER.
--- NOTE | 2017-04-18 11:30 | NUR ---
XRAY DONE AT THE BEDSIDE.
[2017-04-18 11:33] LABS: BASOPHILS # (AUTO) 0.1 /CMM (0.0-0.2); BASOPHILS % (AUTO) 0.5 % (0.0-2.0); EOSINOPHILS % (AUTO) 0.1 % (0.0-6.0); HEMATOCRIT 27 % (33-45); HEMOGLOBIN 8.5 g/dL (11.5-14.8); LYMPHOCYTES # (AUTO) 2.4 /CMM (0.8-4.8); LYMPHOCYTES % (AUTO) 15.2 % (20.0-44.0); MEAN CORPUSCULAR HEMOGLOBIN 27 PG (26.0-33.0); MEAN CORPUSCULAR HGB CONC 32 g/dl (31.0-36.0); MEAN CORPUSCULAR VOLUME 84 fL (82-100); MONOCYTES # (AUTO) 0.8 /CMM (0.1-1.30); MONOCYTES % (AUTO) 4.9 % (2.0-12.0); NEUTROPHILS # (AUTO) 12.5 /CMM (1.8-8.9); NEUTROPHILS % (AUTO) 79.3 % (43.0-81.0); PLATELET COUNT (AUTO) 400 /CMM (150-450); RDW COEFFICIENT OF VARIATION 17.4 (11.5-15.0); RED BLOOD CELL COUNT(AUTO) 3.19 MIL/uL (4.0-5.2); WHITE BLOOD COUNT (AUTO) 15.8 K/uL (4.3-11.0)
--- NOTE | 2017-04-18 11:41 | NUR ---
ANOTHER IV INSERTION ATTEMPT IN PROGRESS. UNABLE TO OBTAIN A MID LINE AT THIS TIME.
[2017-04-18 11:42] LABS: CALCIUM, SERUM 8.1 mg/dL (8.5-10.1); CARBON DIOXIDE 26 mmol/L (21-32); CHLORIDE 104 mmol/L (98-107); CREATININE 0.5 mg/dL (0.6-1.3); GLUCOSE 112 mg/dL (74-106); SODIUM SERUM 136 mmol/L (136-145); UREA NITROGEN, BLOOD 12 mg/dL (7-18)
[2017-04-18 11:48] LABS: ALANINE AMINOTRANSFERASE 6 U/L (12-78); ALBUMIN 1.5 g/dL (3.4-5.0); ALKALINE PHOSPHATASE 87 U/L (46-116); ASPARTATE AMINOTRANSFERASE 13 U/L (15-37); BILIRUBIN,DIRECT 0.2 mg/dL (0.0-0.2); BILIRUBIN,TOTAL 0.7 mg/dL (0.2-1.0); INR 1.2 (0.87-1.13); PROTHROMBIN TIME 12.5 SECS (9.5-12.7); TOTAL PROTEIN, SERUM 5.1 g/dL (6.4-8.2)
[2017-04-18] MEDS ORDERED: HYDROMORPHONE 1 MG/1 ML DISP.SYRIN ONE (12:02)
[2017-04-18 12:05] LABS: TROPONIN I 0.013 ng/mL (0.00-0.056)
--- NOTE | 2017-04-18 12:14 | NUR ---
SPOKE TO PT'S SON, OLGA, AND HE WOULD LIKE TO GET AN UPDATE WHEN PT IS GOING TO BE ADMITTED. CALL HIM AT [phone]
--- NOTE | 2017-04-18 12:14 | NUR ---
CRAIG CATH INSERTED AND APPROX. 300 ML CONCENTRATED URINE OUTPUT NOTED. SAMPLE SENT TO LAB.
--- NOTE | 2017-04-18 12:25 | NUR ---
MESSAGE LEFT FOR DR. SEPULVEDA.
--- NOTE | 2017-04-18 12:39 | NUR ---
XRAY IS AT THE BEDSIDE.
--- NOTE | 2017-04-18 12:41 | NUR ---
DR. SEPULVEDA IS AT THE BEDSIDE.
[2017-04-18 12:45] LABS: APPEARANCE,URINE Clear (CLEAR); BILIRUBIN,URINE Negative (NEGATIVE); BLOOD, URINE Trace-intact Ery/uL (NEGATIVE); COLOR,URINE Dark (YELLOW); KETONES,URINE Trace (NEGATIVE); LEUKOCYTE ESTERASE ,URINE Negative (NEGATIVE); NITRITE, URINE Negative (NEGATIVE); PROTEIN,URINE 30 mg/dl (NEGATIVE); UGLUCOSE Negative (NEGATIVE); UROBILINOGEN,URINE 0.2 EU/dL (0.2)
[2017-04-18 12:49] LABS: BACTERIA,URINE Few /HPF (None Seen); SQUAMOUS EPITHELIAL CELL,UR Few /HPF (None Seen)
[2017-04-18] MEDS: ASCORBIC ACID 500 MG TABLET PO SCH (13:00)
[2017-04-18] MEDS: ASPIRIN 81 MG TAB.CHEW PO SCH (13:00)
[2017-04-18] MEDS: ZINC SULFATE 220 MG CAPSULE PO SCH (13:00)
[2017-04-18] MEDS: MAGNESIUM OXIDE 400 MG TABLET PO SCH (13:00)
[2017-04-18] MEDS ORDERED: BISACODYL SUPP (10 MG) 10 MG/SUPP.RECT SUPP.RECT RC PRN (13:00)
[2017-04-18] MEDS ORDERED: PANTOPRAZOLE 40 MG TABLET.DR PO SCH (13:00)
[2017-04-18] MEDS ORDERED: MAGNESIUM HYDROXIDE 30 ML UDC PO PRN (13:00)
--- NOTE | 2017-04-18 13:15 | NUR ---
Bed 117-2
--- NOTE | 2017-04-18 13:22 | NUR ---
CALLED TO GIVE REPORT. PT NOT ASSIGNED YET. WILL CALL BACK IN 10 MINS.
[2017-04-18] MEDS: MULTIVIT, IRON, MIN NO. 8, FA 1 TAB PO SCH (13:30)
--- NOTE | 2017-04-18 13:42 | NUR ---
REPORT GIVEN TO MIRIAM MACHADO
[2017-04-18 14:45] VITALS: BP 130/47
--- NOTE | 2017-04-18 15:00 | NUR ---
FARM MACHINERY ERECTOR NOTE RECEIVED PATIENT FROM ER WITH DX LT LEG CELLULITIS ,ALERT WITH CONFUSION, WITH CRAIG CATH TO GRAVITY WITH YELLOW DANIEL COLOR , PLACED ON TELE ,SR ,BED IN LOWEST AND LOCKED POSITION ,CALL LIGHT WITHIN REACH. PLACED ON ISOFLEX BED ORDERED FOR SKIN MANAGEMENT , , BODY CHECK DONE ,VITAL SIGN CHECKED, PLAN OF CARE DISCUSSED WITH PATIENT , HOSPITAL ORIENTATION DONE , ADMITTED UNDER CARE DR SEPULVEDA, ON 2L NC NO SOB NOTED
[2017-04-18] MEDS ORDERED: SACCHAROMYCES BOULARDII 250 MG CAPSULE PO SCH (17:00)
[2017-04-18] MEDS ORDERED: LIDOCAINE 1% INJ 50 ML MDV IJ ONE (17:00)
[2017-04-18] MEDS: METOPROLOL TARTRATE 25 MG TABLET PO SCH ×2 (17:00→17:26)
[2017-04-18] MEDS: DOCUSATE SODIUM 100 MG CAPSULE PO SCH ×2 (17:00→17:25)
[2017-04-18] MEDS: LACTOBACILLUS RHAMNOSUS GG 1 EACH CAP.SPRINK PO SCH (17:25)
[2017-04-18] MEDS: TRAMADOL HCL 50 MG TABLET PO SCH (17:25)
[2017-04-18] MEDS: APIXABAN 2.5 MG TABLET PO SCH ×2 (17:28→22:21)
--- NOTE | 2017-04-18 17:31 | NUR ---
telecommunications field engineer nnote seen by dr Ugarte debridement on lt leg done consent done spoke with son, telephone consent obtained . metoprolol and Colace given as ordered for 1700
--- NOTE | 2017-04-18 18:00 | NUR ---
TELE RNNOTE DR CHURCH AT BEDSIDE DEBRIDEMENT DONE LT LEG AND CX OF WOUND TAKEN
[2017-04-18] MEDS ORDERED: FEE PK DOSING 1 MIN EA MC ONE (18:29)
[2017-04-18 20:00] VITALS: BP 105/39
[2017-04-18] MEDS ORDERED: ACETAMINOPHEN 325 MG TABLET PO PRN (20:00)
[2017-04-18] MEDS ORDERED: ONDANSETRON HCL/PF 4 MG/2 ML VIAL IV PRN (20:00)
[2017-04-18] MEDS ORDERED: LEVOFLOXACIN 250 MG /D5W 50 ML 250 MG in PREMIX 1 EA IV SCH (20:00)
[2017-04-18] MEDS ORDERED: MORPHINE SULFATE INJ 10 MG/ML DISP.SYRIN IV PRN (20:00)
[2017-04-18] MEDS: IV NS 0.9% 1,000 ML IV PRN (20:22)
[2017-04-18] MEDS: GENTAMICIN 90 MG in IV D5W 50 ML IV SCH (20:32)
[2017-04-18] MEDS: MEROPENEM 500 MG in IV NS 0.9% 50 ML IV SCH (21:00)
[2017-04-18] MEDS: MIRTAZAPINE 15 MG TABLET PO SCH (22:21)
[2017-04-18] MEDS ORDERED: MEROPENEM 1 G VIAL IV ONE (22:47)
[2017-04-18] MEDS ORDERED: MEROPENEM 500 MG VIAL IV ONE (22:50)
--- NOTE | 2017-04-18 23:00 | NUR ---
RN NOTE CHARGE NURSE RECEIVED [facility] ORDER FOR ME. FIRST DOSE WAS WRONG SO TOOK OUT CORRECT DOSE AND GIVEN.
[2017-04-19] VITALS: BP 147/53
[2017-04-19 04:00] VITALS: BP 144/69
[2017-04-19] MEDS: IV NS 0.9% 1,000 ML IV PRN (05:55)
--- NOTE | 2017-04-19 07:20 | NUR ---
RN NOTES PATIENT AWAKE, ALERT AND ORIENTED TO SELF ONLY. ABLE TO MAKE NEEDS KNOWN. RESPIRATIONS EVEN AND UNLABORED, DENIES ANY PAIN OR DISCOMFORT AT THIS TIME.CRAIG CATHETER IN PLACE PATENT AND INTACT. PATIENT CLEAN DRY AND COMFORTABLE, IV SITE PATENT AND INTACT NO REDNESS OR INFILTRATION. CALL LIGHT WITHIN EASY REACH, WILL CONTINUE TO MONITOR
--- NOTE | 2017-04-19 07:30 | NUR ---
RN/TELE NOTES: PT. IN BED SLEEPING W/ RESPIRATION EVEN AND UNLABORED REPORT GIVEN TO NEXT SHIFT NURSE TO CONTINUE PLAN OF CARE..
[2017-04-19 07:32] LABS: BASOPHILS % (AUTO) 0.5 % (0.0-2.0); EOSINOPHILS # (AUTO) 0.1 /CMM (0.0-0.7); EOSINOPHILS % (AUTO) 1.7 % (0.0-6.0); HEMATOCRIT 25 % (33-45); HEMOGLOBIN 8.1 g/dL (11.5-14.8); LYMPHOCYTES # (AUTO) 2.2 /CMM (0.8-4.8); LYMPHOCYTES % (AUTO) 26.9 % (20.0-44.0); MEAN CORPUSCULAR HEMOGLOBIN 27 PG (26.0-33.0); MEAN CORPUSCULAR HGB CONC 33 g/dl (31.0-36.0); MEAN CORPUSCULAR VOLUME 83 fL (82-100); MONOCYTES # (AUTO) 0.6 /CMM (0.1-1.30); MONOCYTES % (AUTO) 7.6 % (2.0-12.0); NEUTROPHILS # (AUTO) 5.3 /CMM (1.8-8.9); NEUTROPHILS % (AUTO) 63.3 % (43.0-81.0); PLATELET COUNT (AUTO) 392 /CMM (150-450); RDW COEFFICIENT OF VARIATION 18.7 (11.5-15.0); RED BLOOD CELL COUNT(AUTO) 2.98 MIL/uL (4.0-5.2); WHITE BLOOD COUNT (AUTO) 8.4 K/uL (4.3-11.0)
[2017-04-19 07:43] LABS: CALCIUM, SERUM 7.6 mg/dL (8.5-10.1); CARBON DIOXIDE 23 mmol/L (21-32); CHLORIDE 107 mmol/L (98-107); CREATININE 0.4 mg/dL (0.6-1.3); GLUCOSE 90 mg/dL (74-106); MAGNESIUM 1.7 mg/dL (1.8-2.4); PHOSPHORUS 3.1 mg/dL (2.5-4.9); POTASSIUM 2.9 mmol/L (3.5-5.1); SODIUM SERUM 139 mmol/L (136-145); UREA NITROGEN, BLOOD 10 mg/dL (7-18)
[2017-04-19 08:00] VITALS: BP 145/63
--- NOTE | 2017-04-19 08:50 | NUR ---
WOUND CARE CONSULT: PT PRESENTS WITH RED RASH TO SACRAL/BUTTOCKS, INNER THIGHS AND PERINEAL AREA, PRESENT ON ADMISSION. PT IS INCONTINENT OF STOOL. PT NOTED TO HAVE TWO FRAGILE SCARS TO LEFT HIP AND THIGH AREAS. LEFT LOWER LEG DRESSINGS NOTED. DEFER TO DR BRADLEY FOR LOWER EXTREMITIES. PT REFUSED ASSESSMENT OF LEFT HEEL. PT AGITATED AT TIMES. RECOMMENDATIONS MADE FOR SKIN PROTECTION AND CARE OF RASH. DISCUSSED WITH NURSING STAFF. PT ON [facility] LOW AIRSS BED. WILL SEE PRN. FROST IN AGREEMENT WITH PLAN OF CARE. Addendum: 04/19/17 at 0902 by ALEJO COOK WNDNU ATTEMPTED TO ASSESS LEFT HEEL. DIFFICULT ASSESSMENT DUE TO PT AGITATED. INTACT DEEP TISSUE INJURY WITH SCARRING NOTED. RECOMMEND OFFLOAD AREA AND PROTECT WITH MEPILEX.
[2017-04-19] MEDS: DOCUSATE SODIUM 100 MG CAPSULE PO SCH ×2 (09:00→16:56)
[2017-04-19] MEDS ORDERED: Z GUARD REMEDY 2 OZ OINT TP PRN (09:00)
[2017-04-19] MEDS: ASCORBIC ACID 500 MG TABLET PO SCH (09:40)
[2017-04-19] MEDS: ZINC SULFATE 220 MG CAPSULE PO SCH (09:40)
[2017-04-19] MEDS: TRAMADOL HCL 50 MG TABLET PO SCH (09:40)
[2017-04-19] MEDS: ASPIRIN 81 MG TAB.CHEW PO SCH (09:40)
[2017-04-19] MEDS: LACTOBACILLUS RHAMNOSUS GG 1 EACH CAP.SPRINK PO SCH ×2 (09:41→16:56)
[2017-04-19] MEDS: MULTIVIT, IRON, MIN NO. 8, FA 1 TAB PO SCH (09:41)
[2017-04-19] MEDS: MAGNESIUM OXIDE 400 MG TABLET PO SCH (09:41)
[2017-04-19] MEDS: PANTOPRAZOLE 40 MG TABLET.DR PO SCH (09:41)
[2017-04-19] MEDS: METOPROLOL TARTRATE 25 MG TABLET PO SCH ×2 (09:42→16:58)
[2017-04-19] MEDS: APIXABAN 2.5 MG TABLET PO SCH ×2 (09:52→21:11)
--- NOTE | 2017-04-19 11:15 | NUR ---
RN NOTES PATIENT AWAKE, ALERT AND ORIENTED TO SELF ONLY. ABLE TO MAKE NEEDS KNOWN. RESPIRATIONS EVEN AND UNLABORED, DENIES ANY PAIN OR DISCOMFORT AT THIS TIME.CRAIG CATHETER IN PLACE PATENT AND INTACT. PATIENT CLEAN DRY AND COMFORTABLE, PT WITH LEAKING WITH REINSERTION ATTEMPTED WILL CONTINUE TO MONITOR. CALL LIGHT WITHIN EASY REACH, ENDORSED TO NEXT SHIFT FOR CONTINUITY OF CARE Addendum: 04/19/17 at 1125 by CRISTIAN AREVALO RN RN NOTES [facility] TO BE DELIVERED BY PHARMACY NEXT NURSE AWARE
[2017-04-19 12:00] VITALS: BP 138/52
--- NOTE | 2017-04-19 12:00 | NUR ---
ACCOUNTS PAYABLE TECHNICIAN NOTE DR CHURCH FOOT DOCTOR SEEN PATIENT AT BEDSIDE ,NEW DRESSING CHANGED ,STATED CONT CHANGE DRESSING OVER WEEKENDS
--- NOTE | 2017-04-19 12:00 | NUR ---
TIRE RECAPPING MACHINE OPERATOR NOTE NEW HL INSERTED LAN 22 ON RT WRIST, CONT ON IVF ORDERED
[2017-04-19] MEDS: CLOTRIMAZOLE/BETAMETASONE DIPROPIONATE 15 GM TUBE TP SCH ×2 (13:11→16:58)
[2017-04-19] MEDS: Z GUARD REMEDY 2 OZ OINT TP SCH (13:11)
[2017-04-19] MEDS: POTASSIUM CHLORIDE 20 MEQ POWDER PACKET PO SCH ×3 (13:12→15:14)
[2017-04-19] MEDS: MEROPENEM 500 MG in IV NS 0.9% 50 ML IV SCH ×2 (13:19→21:11)
--- NOTE | 2017-04-19 14:00 | NUR ---
LOG HAUL OPERATOR NOTE MAG 1.7 DR SEPULVEDA AWARE WITH NEW ORDER MAG GIVEN
[2017-04-19] MEDS: Magnesium 1GM/D5W 100ML PREMIX 100 ML IV SCH ×2 (15:17→16:49)
[2017-04-19 16:00] VITALS: BP 154/99
--- NOTE | 2017-04-19 17:57 | NUR ---
TERMINAL WORKER NOTE 2 GM OF MAG INFUSED IV CONT ON IVF ORDERED, HAVING DINNER, FEED BY STUFF
--- NOTE | 2017-04-19 18:43 | NUR ---
MS RN NOTE MID LINE ON RT UPPER ARM INSERTED ORDERED
--- NOTE | 2017-04-19 19:50 | NUR ---
RN MS INITIAL NOTE PT RECEIVED IN NO ACUTE DISTRESS AT THIS TIME. A/O X1 CONFUSED BUT STATES "FEELING BETTER". ON TELE WITH SR 78. RT WRIST 22G AND NEWLY INSERTED MIDLINE JANET ARE CLEAN DRY AND INTACT. MIDLINE RUNNING IVF CURRENTLY. F/C IS CLEAN DRY AND INTACT DRAINING YELLOW DANIEL URINE. NOTED SOME SLIGHT SOB SO REINSERTED NASAL CANNULA. COMFORT AND SAFETY MEASURES TO BE ENSURED DURING THE SHIFT. WILL CONTINUE TO MONITOR FOR ANY CHANGES.
[2017-04-19 20:00] VITALS: BP 121/37
[2017-04-19] MEDS: GENTAMICIN 90 MG in IV D5W 50 ML IV SCH (20:28)
[2017-04-19] MEDS: MIRTAZAPINE 15 MG TABLET PO SCH (21:11)
[2017-04-20] MEDS: IV NS 0.9% 1,000 ML IV PRN ×2 (01:51→17:03)
[2017-04-20 04:00] VITALS: BP_SYST 145; BP_SYST 171; BP_DIAS 61; BP_DIAS 62
--- NOTE | 2017-04-20 06:23 | NUR ---
RN MS CLOSING NOTE PT REMAINS IN NO ACUTE DISTRESS AT THIS TIME. ALL DUE MEDICATIONS WERE TAKEN AND TOLERATED WELL. VITALS WNL. RUNNING FLUDIS THROUGH JANET MIDLINE. NO CHANGES IN MENTAL STATUS AND STILL A/O X1 CONFUSED. COMFORT AND SAFETY MEASURES ENSURED DURING THE SHIFT. WILL ENDORSE CARE TO AM NURSE.
--- NOTE | 2017-04-20 07:27 | NUR ---
AM RN NOTE Received patient sleeping comfortably in her bed, no acute distress noted. No SOB noted resp even and non-labored. Midline intact and patent. F/C intact and patent, draining with dark yellow colored urine. Bed in low locked position. Will continue to monitor.
[2017-04-20 07:44] LABS: BASOPHILS # (AUTO) 0.1 /CMM (0.0-0.2); BASOPHILS % (AUTO) 1.5 % (0.0-2.0); EOSINOPHILS # (AUTO) 0.1 /CMM (0.0-0.7); EOSINOPHILS % (AUTO) 1.2 % (0.0-6.0); HEMATOCRIT 26 % (33-45); HEMOGLOBIN 8.2 g/dL (11.5-14.8); LYMPHOCYTES # (AUTO) 1.9 /CMM (0.8-4.8); LYMPHOCYTES % (AUTO) 26.5 % (20.0-44.0); MEAN CORPUSCULAR HEMOGLOBIN 27 PG (26.0-33.0); MEAN CORPUSCULAR HGB CONC 32 g/dl (31.0-36.0); MEAN CORPUSCULAR VOLUME 83 fL (82-100); MONOCYTES # (AUTO) 0.5 /CMM (0.1-1.30); MONOCYTES % (AUTO) 6.2 % (2.0-12.0); NEUTROPHILS # (AUTO) 4.7 /CMM (1.8-8.9); NEUTROPHILS % (AUTO) 64.6 % (43.0-81.0); PLATELET COUNT (AUTO) 426 /CMM (150-450); RDW COEFFICIENT OF VARIATION 18.8 (11.5-15.0); RED BLOOD CELL COUNT(AUTO) 3.07 MIL/uL (4.0-5.2); WHITE BLOOD COUNT (AUTO) 7.3 K/uL (4.3-11.0)
[2017-04-20 08:00] VITALS: BP 129/69
[2017-04-20 08:06] LABS: CALCIUM, SERUM 7.7 mg/dL (8.5-10.1); CARBON DIOXIDE 23 mmol/L (21-32); CHLORIDE 106 mmol/L (98-107); CREATININE 0.4 mg/dL (0.6-1.3); GLUCOSE 105 mg/dL (74-106); SODIUM SERUM 137 mmol/L (136-145); UREA NITROGEN, BLOOD 7 mg/dL (7-18)
[2017-04-20 08:13] LABS: POTASSIUM 2.8 mmol/L (3.5-5.1)
[2017-04-20] MEDS: ASCORBIC ACID 500 MG TABLET PO SCH (08:14)
[2017-04-20] MEDS: MULTIVIT, IRON, MIN NO. 8, FA 1 TAB PO SCH (08:15)
[2017-04-20] MEDS: PANTOPRAZOLE 40 MG TABLET.DR PO SCH (08:15)
[2017-04-20] MEDS: ASPIRIN 81 MG TAB.CHEW PO SCH (08:15)
[2017-04-20] MEDS: ZINC SULFATE 220 MG CAPSULE PO SCH (08:15)
[2017-04-20] MEDS: MAGNESIUM OXIDE 400 MG TABLET PO SCH (08:15)
[2017-04-20] MEDS: LACTOBACILLUS RHAMNOSUS GG 1 EACH CAP.SPRINK PO SCH ×2 (08:16→16:15)
[2017-04-20] MEDS: DOCUSATE SODIUM 100 MG CAPSULE PO SCH ×2 (08:16→16:15)
[2017-04-20] MEDS: METOPROLOL TARTRATE 25 MG TABLET PO SCH ×2 (08:16→16:18)
[2017-04-20] MEDS: TRAMADOL HCL 50 MG TABLET PO SCH (08:16)
[2017-04-20] MEDS: APIXABAN 2.5 MG TABLET PO SCH ×2 (08:17→21:11)
[2017-04-20] MEDS: CLOTRIMAZOLE/BETAMETASONE DIPROPIONATE 15 GM TUBE TP SCH ×2 (08:18→16:16)
[2017-04-20] MEDS: Z GUARD REMEDY 2 OZ OINT TP SCH (08:18)
[2017-04-20] MEDS: MEROPENEM 500 MG in IV NS 0.9% 50 ML IV SCH ×2 (09:07→21:09)
--- NOTE | 2017-04-20 10:17 | NUR ---
AM RN NOTE K=2.[address] Mcdermott with new orders noted and carried out.
[2017-04-20] MEDS ORDERED: POTASSIUM CL. PREMIX PERIPHER. 50 ML IV SCH ×2 (10:45→11:00)
[2017-04-20] MEDS: Potassium Chloride 10 MEQ in IV D5W 50 ML IV SCH ×4 (11:17→15:16)
--- NOTE | 2017-04-20 18:29 | NUR ---
AM RN NOTE Patient resting in her bed, no acute distress noted. Will endorse care to next shift.
[2017-04-20] MEDS: GENTAMICIN 90 MG in IV D5W 50 ML IV SCH (19:49)
[2017-04-20 20:00] VITALS: BP 141/54
[2017-04-20] MEDS: MIRTAZAPINE 15 MG TABLET PO SCH (21:10)
--- NOTE | 2017-04-20 23:10 | NUR ---
RN:TD: PT REMAINS CONFUSED IN BED. PT VERY FORGETFUL AND CONTINUOUSLY PLAYS WITH HER IV. ATTEMPTED TO HIDE PT IV TO AVOID PT REMOVING. NO ACUTE DISTRESS NOTED. WILL CONTINUE TO MONITOR CLOSELY. FALL AND ASPIRATION PRECAUTIONS IN PLACE.
--- NOTE | 2017-04-21 00:11 | NUR ---
RN:MS: ENDORSED CARE TO ARBI. PT IN STABLE CONDITION, RESTING IN BED. JANET MIDLINE INTACT.
--- NOTE | 2017-04-21 00:12 | NUR ---
RN NOTES RECEIVED PATIENT IN BED WITH EYES CLOSED, AROUSABLE. NO ACUTE DISTRESS NOTED. WILL CONTINUE TO MONITOR.
--- NOTE | 2017-04-21 06:29 | NUR ---
RN NOTES PATIENT ASLEEP, EASILY AROUSABLE. RESPIRATIONS EVEN. NOS SIGNS OF PAIN NOTED. BED BATH GIVEN. NEEDS ATTENDED. SAFETY PRECAUTIONS AND COMFORT MEASURES IN PLACE. WILL GIVE REPORT TO DAY SHIFT FOR CONTINUITY OF CARE.
[2017-04-21 06:40] LABS: CALCIUM, SERUM 8.1 mg/dL (8.5-10.1); CARBON DIOXIDE 26 mmol/L (21-32); CHLORIDE 105 mmol/L (98-107); CREATININE 0.5 mg/dL (0.6-1.3); GLUCOSE 107 mg/dL (74-106); POTASSIUM 3.4 mmol/L (3.5-5.1); SODIUM SERUM 139 mmol/L (136-145); UREA NITROGEN, BLOOD 6 mg/dL (7-18)
[2017-04-21] MEDS: IV NS 0.9% 1,000 ML IV PRN (06:41)
[2017-04-21 08:00] VITALS: BP 101/74
--- NOTE | 2017-04-21 08:01 | NUR ---
MS/RN NOTES PATIENT RESTING IN BED, SLEEPING AT THIS TIME, AROUSABLE TO VERBAL TACTILE STIMULI. NO FORM OF DISTRESS OR DISCOMFORT NOTED, PT DENIES PAIN AT THIS TIME. CRAIG CATH IN PLACE DRAINING YELLOW URINE, LEFT LOWER LEG WOUND DRESSED. MIDLINE TO RIGHT UPPER ARM INTACT AND PATENT INFUSING NS AT 100CC/HR. SAFETY MEASURES RENDERED CALL LIGHT PLACED WITHIN REACH. WILL CONTINUE TO MONITOR.
[2017-04-21] MEDS: METOPROLOL TARTRATE 25 MG TABLET PO SCH ×2 (08:09→16:39)
[2017-04-21] MEDS: MEROPENEM 500 MG in IV NS 0.9% 50 ML IV SCH ×2 (09:15→22:03)
[2017-04-21] MEDS: MULTIVIT, IRON, MIN NO. 8, FA 1 TAB PO SCH (09:17)
[2017-04-21] MEDS: MAGNESIUM OXIDE 400 MG TABLET PO SCH (09:17)
[2017-04-21] MEDS: APIXABAN 2.5 MG TABLET PO SCH ×2 (09:17→22:04)
[2017-04-21] MEDS: TRAMADOL HCL 50 MG TABLET PO SCH (09:17)
[2017-04-21] MEDS: ASCORBIC ACID 500 MG TABLET PO SCH (09:17)
[2017-04-21] MEDS: DOCUSATE SODIUM 100 MG CAPSULE PO SCH ×2 (09:17→16:39)
[2017-04-21] MEDS: ZINC SULFATE 220 MG CAPSULE PO SCH (09:18)
[2017-04-21] MEDS: LACTOBACILLUS RHAMNOSUS GG 1 EACH CAP.SPRINK PO SCH ×2 (09:18→16:39)
[2017-04-21] MEDS: ASPIRIN 81 MG TAB.CHEW PO SCH (09:18)
[2017-04-21] MEDS: Z GUARD REMEDY 2 OZ OINT TP SCH (09:20)
[2017-04-21] MEDS: CLOTRIMAZOLE/BETAMETASONE DIPROPIONATE 15 GM TUBE TP SCH ×2 (09:20→16:40)
[2017-04-21] MEDS: PANTOPRAZOLE 40 MG TABLET.DR PO SCH (09:24)
[2017-04-21] MEDS ORDERED: POTASSIUM CL. PREMIX PERIPHER. 50 ML IV SCH (10:00)
[2017-04-21] MEDS: Potassium Chloride 10 MEQ in IV D5W 50 ML IV SCH ×4 (11:58→14:31)
--- NOTE | 2017-04-21 13:44 | NUR ---
MS/RN NOTES WOUND CARE OF THE LEFT LOWER EXTREMITY DONE ORDERED, TOLERATED PROCEDURE WELL. K+ BAGS REPLACED PRESCRIBED BY MD. PATIENT EXTREMELY AGITATED AND CONFUSED. WILL CONTINUE TO MONITOR
[2017-04-21 16:00] VITALS: BP 143/55
--- NOTE | 2017-04-21 19:30 | NUR ---
DENNIS LUU RN NOTES, RECEIVED PATIENT IN BED SLEEPING BREATHING EVEN AND UNLABORED, NO S/S OF ANY ACUTE DISTRESS OR SOB AT THIS TIME NOTED, JANET NOTED INTACT AND PATENT. NS RUNNING AT 100CC/HR INFUSING WELL AND PATIENT TOLERATED WELL. S/P DEBRIDEMENT IN LEFT LEG ON 04/18, NO BLEEDING NOTED, F/C NOTED WITH MINIMAL AMOUNT OF YELLOW URINE, BED LOCKED AND IN LOWEST POSITION, CALL LIGHT W/I REACH, WILL CONTINUE TO MONITOR CLOSELY.
--- NOTE | 2017-04-21 19:32 | NUR ---
ms/rn notes patient resting in bed comfortably, all due medications given all needs met and attended, safety measures rendered, wound care provided as ordered, patient kept clean and dry. repositioned every 2 hours. kept clean and dry.no s/f of distress/discomfort present. will endorse care to casino shift manager for guy
[2017-04-21 22:00] VITALS: BP 135/63
[2017-04-21] MEDS: MIRTAZAPINE 15 MG TABLET PO SCH (22:04)
--- NOTE | 2017-04-22 06:45 | NUR ---
RN MED SURGE NOTES, PATIENT AWAKE IN BED, REMOVING THE NC, SATURATION LEVEL @96% RA, NO S/S OF ANY ACUTE DISTRESS OR DISCOMFORT, IVF RUNNING AT 100ML/HR, NO S/S OF ANY INFILTRATION OR ABNORMALITY AT THIS TIME, S/P DEBRIDEMENT ON 04/18, NO BLEEDING NOTED AT THIS TIME, TREATMENT DONE ORDERED, KEPT DRY AND CLEAN , BED LOCKED AND IN LOWEST POSITION, CALL LIGHT W/I REACH, WILL ENDORSE CONTINUITY OF CARE TO NEXT SHIFT.
[2017-04-22 06:52] LABS: CALCIUM, SERUM 7.7 mg/dL (8.5-10.1); CARBON DIOXIDE 24 mmol/L (21-32); CHLORIDE 108 mmol/L (98-107); CREATININE 0.5 mg/dL (0.6-1.3); GLUCOSE 99 mg/dL (74-106); MAGNESIUM 1.7 mg/dL (1.8-2.4); POTASSIUM 3.9 mmol/L (3.5-5.1); SODIUM SERUM 139 mmol/L (136-145); UREA NITROGEN, BLOOD 5 mg/dL (7-18)
[2017-04-22] MEDS: IV NS 0.9% 1,000 ML IV PRN (07:19)
[2017-04-22 07:57] LABS: BASOPHILS # (AUTO) 0.1 /CMM (0.0-0.2); BASOPHILS % (AUTO) 1.7 % (0.0-2.0); EOSINOPHILS # (AUTO) 0.1 /CMM (0.0-0.7); EOSINOPHILS % (AUTO) 1.7 % (0.0-6.0); HEMATOCRIT 27 % (33-45); HEMOGLOBIN 8.7 g/dL (11.5-14.8); LYMPHOCYTES # (AUTO) 2.8 /CMM (0.8-4.8); LYMPHOCYTES % (AUTO) 35.9 % (20.0-44.0); MEAN CORPUSCULAR HEMOGLOBIN 27 PG (26.0-33.0); MEAN CORPUSCULAR HGB CONC 32 g/dl (31.0-36.0); MEAN CORPUSCULAR VOLUME 84 fL (82-100); MONOCYTES # (AUTO) 0.6 /CMM (0.1-1.30); MONOCYTES % (AUTO) 7.2 % (2.0-12.0); NEUTROPHILS # (AUTO) 4.1 /CMM (1.8-8.9); NEUTROPHILS % (AUTO) 53.5 % (43.0-81.0); PLATELET COUNT (AUTO) 302 /CMM (150-450); RDW COEFFICIENT OF VARIATION 18.9 (11.5-15.0); RED BLOOD CELL COUNT(AUTO) 3.27 MIL/uL (4.0-5.2); WHITE BLOOD COUNT (AUTO) 7.7 K/uL (4.3-11.0)
[2017-04-22 08:00] VITALS: BP 153/48
--- NOTE | 2017-04-22 08:00 | NUR ---
MS RN NOTES PATIENT IN BED RESTING NO SOB OR ACUTE DISTRESS NOTED. MIDLINE INTACT PATENT. BED IN LOW LOCKED POSITION. PATIENT NOTED WITH GENERALIZED EDEMA TO BLE, AND BUE. WITH WOUND ON LEFT LOWER EXTREMITY INTACT. ALSO PATIENT WITH CRAIG INTACT PATENT. BED IN LOW LOCKED POSITION. CALL LIGHT WITHIN REACH. WILL CONTINUE TO MONITOR.
[2017-04-22] MEDS: MAGNESIUM OXIDE 400 MG TABLET PO SCH (08:54)
[2017-04-22] MEDS: ASCORBIC ACID 500 MG TABLET PO SCH (08:54)
[2017-04-22] MEDS: MEROPENEM 500 MG in IV NS 0.9% 50 ML IV SCH ×2 (08:54→21:04)
[2017-04-22] MEDS: MULTIVIT, IRON, MIN NO. 8, FA 1 TAB PO SCH (08:55)
[2017-04-22] MEDS: ASPIRIN 81 MG TAB.CHEW PO SCH (08:55)
[2017-04-22] MEDS: LACTOBACILLUS RHAMNOSUS GG 1 EACH CAP.SPRINK PO SCH ×2 (08:55→17:13)
[2017-04-22] MEDS: ZINC SULFATE 220 MG CAPSULE PO SCH (08:57)
[2017-04-22] MEDS: TRAMADOL HCL 50 MG TABLET PO SCH (08:58)
[2017-04-22] MEDS: APIXABAN 2.5 MG TABLET PO SCH ×2 (09:01→21:06)
[2017-04-22] MEDS: DOCUSATE SODIUM 100 MG CAPSULE PO SCH ×2 (09:01→17:13)
[2017-04-22] MEDS: METOPROLOL TARTRATE 25 MG TABLET PO SCH ×2 (09:01→17:15)
[2017-04-22] MEDS: CLOTRIMAZOLE/BETAMETASONE DIPROPIONATE 15 GM TUBE TP SCH ×2 (09:02→17:15)
[2017-04-22] MEDS: Z GUARD REMEDY 2 OZ OINT TP SCH (09:03)
[2017-04-22] MEDS: PANTOPRAZOLE 40 MG TABLET.DR PO SCH (09:08)
[2017-04-22 10:00] VITALS: BP 130/72
[2017-04-22] MEDS: Magnesium 1GM/D5W 100ML PREMIX 100 ML IV SCH ×2 (11:13→12:24)
--- NOTE | 2017-04-22 13:00 | NUR ---
MS RN NOTES PATIENT SEEN AND EVALUATED BY DR. SEPULVEDA ORDERS NOTED AND CARRIED OUT.
[2017-04-22] MEDS: FUROSEMIDE 20 MG/2 ML VIAL IV SCH (13:01)
[2017-04-22 16:00] VITALS: BP 137/78
--- NOTE | 2017-04-22 19:28 | NUR ---
MS RN NOTES PATIENT IN BED RESTING NO SOB OR ACUTE DISTRESS NOTED. MIDLINE INTACT PATENT. CRAIG INTACT PATENT DRAINING YELLOW, CLEAR URIN. ALL DUE MEDICATIONS ADMINISTERED. WILL ENDORSE TO PM SHIFT.
--- NOTE | 2017-04-22 19:50 | NUR ---
RN MS INITIAL NOTE PT RECEIVED IN NO ACUTE DISTRESS AT THIS TIME. A/O X1 CONFUSED. RT WRIST 22G AND NEWLY INSERTED MIDLINE JANET ARE CLEAN DRY AND INTACT. F/C IS CLEAN DRY AND INTACT DRAINING YELLOW DANIEL URINE. COMFORT AND SAFETY MEASURES TO BE ENSURED DURING THE SHIFT. WILL CONTINUE TO MONITOR FOR ANY CHANGES.
[2017-04-22 20:00] VITALS: BP 122/66
[2017-04-22] MEDS: MIRTAZAPINE 15 MG TABLET PO SCH (21:05)
[2017-04-22 22:00] VITALS: BP 122/66
[2017-04-23 04:00] VITALS: BP 156/86
--- NOTE | 2017-04-23 05:52 | NUR ---
RN MS CLOSING NOTE PT REMAINS IN NO ACUTE DISTRESS. MEDICATIONS CRUSHED IN APPLE SAUCE AND TAKEN ORDERED. WOUND CARE DONE ORDERED. WILL ENDORSE CARE TO AM NURSE.
[2017-04-23] MEDS: LORAZEPAM INJ 2 MG/ML VIAL IVP PRN ×2 (05:58→16:38)
[2017-04-23] MEDS: PANTOPRAZOLE 40 MG TABLET.DR PO SCH (07:30)
[2017-04-23 08:06] VITALS: BP 135/71
[2017-04-23 08:17] LABS: BASOPHILS # (AUTO) 0.1 /CMM (0.0-0.2); BASOPHILS % (AUTO) 0.6 % (0.0-2.0); EOSINOPHILS # (AUTO) 0.1 /CMM (0.0-0.7); HEMATOCRIT 28 % (33-45); HEMOGLOBIN 9.2 g/dL (11.5-14.8); LYMPHOCYTES # (AUTO) 2.8 /CMM (0.8-4.8); LYMPHOCYTES % (AUTO) 31.1 % (20.0-44.0); MEAN CORPUSCULAR HEMOGLOBIN 27 PG (26.0-33.0); MEAN CORPUSCULAR HGB CONC 33 g/dl (31.0-36.0); MEAN CORPUSCULAR VOLUME 83 fL (82-100); MONOCYTES # (AUTO) 0.6 /CMM (0.1-1.30); MONOCYTES % (AUTO) 6.3 % (2.0-12.0); NEUTROPHILS # (AUTO) 5.5 /CMM (1.8-8.9); PLATELET COUNT (AUTO) 360 /CMM (150-450); RED BLOOD CELL COUNT(AUTO) 3.41 MIL/uL (4.0-5.2); WHITE BLOOD COUNT (AUTO) 9.1 K/uL (4.3-11.0)
[2017-04-23 08:43] LABS: CALCIUM, SERUM 8.3 mg/dL (8.5-10.1); CARBON DIOXIDE 26 mmol/L (21-32); CHLORIDE 106 mmol/L (98-107); CREATININE 0.5 mg/dL (0.6-1.3); GLUCOSE 88 mg/dL (74-106); POTASSIUM 3.6 mmol/L (3.5-5.1); SODIUM SERUM 139 mmol/L (136-145); UREA NITROGEN, BLOOD 5 mg/dL (7-18)
[2017-04-23] MEDS: FUROSEMIDE 20 MG/2 ML VIAL IV SCH (09:11)
[2017-04-23] MEDS: MEROPENEM 500 MG in IV NS 0.9% 50 ML IV SCH ×2 (09:12→21:38)
[2017-04-23] MEDS: DOCUSATE SODIUM 100 MG CAPSULE PO SCH ×2 (09:13→16:33)
[2017-04-23] MEDS: METOPROLOL TARTRATE 25 MG TABLET PO SCH ×2 (09:13→16:34)
[2017-04-23] MEDS: ASPIRIN 81 MG TAB.CHEW PO SCH (09:13)
[2017-04-23] MEDS: APIXABAN 2.5 MG TABLET PO SCH ×2 (09:13→21:38)
[2017-04-23] MEDS: LACTOBACILLUS RHAMNOSUS GG 1 EACH CAP.SPRINK PO SCH ×2 (09:13→16:33)
[2017-04-23] MEDS: TRAMADOL HCL 50 MG TABLET PO SCH (09:14)
[2017-04-23] MEDS: MAGNESIUM OXIDE 400 MG TABLET PO SCH (09:14)
[2017-04-23] MEDS: MULTIVIT, IRON, MIN NO. 8, FA 1 TAB PO SCH (09:14)
[2017-04-23] MEDS: ASCORBIC ACID 500 MG TABLET PO SCH (09:14)
[2017-04-23] MEDS: ZINC SULFATE 220 MG CAPSULE PO SCH (09:15)
[2017-04-23] MEDS: CLOTRIMAZOLE/BETAMETASONE DIPROPIONATE 15 GM TUBE TP SCH ×2 (09:15→16:35)
[2017-04-23] MEDS: Z GUARD REMEDY 2 OZ OINT TP SCH (09:15)
[2017-04-23 16:00] VITALS: BP 143/52
[2017-04-23 20:00] VITALS: BP 160/74
[2017-04-23] MEDS: MIRTAZAPINE 15 MG TABLET PO SCH (21:39)
[2017-04-24 04:00] VITALS: BP 135/82
--- NOTE | 2017-04-24 07:30 | NUR ---
RN NOTES RECEIVED PATIENT IN BED ALERT, AWAKE, ORIENTED X1 WITH PERIODS OF CONFUSION. BREATHING IS NORMAL, EVEN AND UNLABORED. NO SOB NOTED. ON ROOM AIR, SATURATING WELL. JANET MIDLINE IS PATENT AND INTACT. F/C IS PATENT AND INTACT, DRAINING WITH GRAVITY. KEPT CLEAN, DRY AND COMFORTABLE. ALL NEEDS ATTENDED. SAFETY MEASURE OBSERVED. CALL LIGHT WITH IN REACH. WILL CONT TO MONITOR.
[2017-04-24 08:00] VITALS: BP 140/53
[2017-04-24] MEDS: APIXABAN 2.5 MG TABLET PO SCH ×2 (08:20→21:50)
[2017-04-24] MEDS: MEROPENEM 500 MG in IV NS 0.9% 50 ML IV SCH ×2 (08:20→21:50)
[2017-04-24] MEDS: LACTOBACILLUS RHAMNOSUS GG 1 EACH CAP.SPRINK PO SCH ×2 (08:21→17:18)
[2017-04-24] MEDS: MULTIVIT, IRON, MIN NO. 8, FA 1 TAB PO SCH (08:22)
[2017-04-24] MEDS: TRAMADOL HCL 50 MG TABLET PO SCH (08:22)
[2017-04-24] MEDS: ASPIRIN 81 MG TAB.CHEW PO SCH (08:22)
[2017-04-24] MEDS: FUROSEMIDE 20 MG/2 ML VIAL IV SCH (08:23)
[2017-04-24] MEDS: METOPROLOL TARTRATE 25 MG TABLET PO SCH ×2 (08:23→17:19)
[2017-04-24] MEDS: PANTOPRAZOLE 40 MG TABLET.DR PO SCH (08:23)
[2017-04-24] MEDS: ZINC SULFATE 220 MG CAPSULE PO SCH (08:23)
[2017-04-24] MEDS: DOCUSATE SODIUM 100 MG CAPSULE PO SCH ×2 (08:23→17:18)
[2017-04-24] MEDS: ASCORBIC ACID 500 MG TABLET PO SCH (08:23)
[2017-04-24] MEDS: MAGNESIUM OXIDE 400 MG TABLET PO SCH (08:23)
[2017-04-24] MEDS: CLOTRIMAZOLE/BETAMETASONE DIPROPIONATE 15 GM TUBE TP SCH ×2 (08:24→17:19)
[2017-04-24] MEDS: Z GUARD REMEDY 2 OZ OINT TP SCH (08:24)
[2017-04-24 10:05] LABS: CALCIUM, SERUM 8.1 mg/dL (8.5-10.1); CARBON DIOXIDE 29 mmol/L (21-32); CHLORIDE 104 mmol/L (98-107); CREATININE 0.6 mg/dL (0.6-1.3); GLUCOSE 93 mg/dL (74-106); POTASSIUM 3.6 mmol/L (3.5-5.1); SODIUM SERUM 139 mmol/L (136-145); UREA NITROGEN, BLOOD 7 mg/dL (7-18)
[2017-04-24 12:00] VITALS: BP 124/55
--- NOTE | 2017-04-24 12:00 | NUR ---
RN NOTES PATIENT RECEIVED FROM ELSI. NO SOB OR DISTRESS NOTED AT THIS TIME. PATIENT IS SLEEPING. BED IN A LOW POSITION, CALL LIGHT WITHIN PATIENT REACH. WILL CONTINUE TO MONITOR.
--- NOTE | 2017-04-24 12:00 | NUR ---
RN NOTES PATIENT TRANSFERRED TO ROOM 205 IN STABLE CONDITION WITH BREATHING NORMAL, EVEN AND UNLABORED. NO SOB NOTED. NO ACUTE DISTRESS NOTED. KEPT CLEAN, DRY AND COMFORTABLE. REPORT GIVEN TO NALLELY PINEDA FOR CONTINUITY OF CARE.
[2017-04-24] MEDS: LORAZEPAM INJ 2 MG/ML VIAL IVP PRN (15:15)
--- NOTE | 2017-04-24 19:07 | NUR ---
RN CLOSING NOTES NO SIGNIFICANT CHANGES IN PATIENT CONDITION, NO SOB OR DISTRESS NOTED AT THIS TIME. PATIENT SLEEPING, DOES NOT APPEAR TO BE IN PAIN. BED IN A LOW POSITION, CALL LIGHT WITHIN PATIENT REACH. WILL ENDORSE FOR KYUNG.
--- NOTE | 2017-04-24 19:20 | NUR ---
MS/RN OPENING NOTES PT RECEIVED ASLEEP, CONFUSED. BREATHING EVEN AND UNLABORED. NO SOB OR PAIN NOTED. NO FACIAL GRIMACING. CRAIG IN PLACE AND DRAINING TO GRAVITY. JANET MIDLINE PATENT AND INTACT. BED IN LOW/LOCKED POSITION WITH CALL LIGHT IN REACH SIDE RAILS UPX3. BED ALARM ON FOR SAFETY. WILL CONTINUE TO MONITOR
[2017-04-24 20:00] VITALS: BP 118/51
[2017-04-24] MEDS: MIRTAZAPINE 15 MG TABLET PO SCH (21:50)
--- NOTE | 2017-04-25 04:13 | NUR ---
MS/RN NOTES WOUND CARE PROVIDED ORDERED.
[2017-04-25 06:36] LABS: EOSINOPHILS # (AUTO) 0.1 /CMM (0.0-0.7); EOSINOPHILS % (AUTO) 1.3 % (0.0-6.0); HEMATOCRIT 26 % (33-45); HEMOGLOBIN 8.7 g/dL (11.5-14.8); LYMPHOCYTES # (AUTO) 2.3 /CMM (0.8-4.8); LYMPHOCYTES % (AUTO) 26.2 % (20.0-44.0); MEAN CORPUSCULAR HEMOGLOBIN 27 PG (26.0-33.0); MEAN CORPUSCULAR HGB CONC 33 g/dl (31.0-36.0); MEAN CORPUSCULAR VOLUME 84 fL (82-100); MONOCYTES # (AUTO) 0.6 /CMM (0.1-1.30); MONOCYTES % (AUTO) 6.8 % (2.0-12.0); NEUTROPHILS # (AUTO) 5.9 /CMM (1.8-8.9); NEUTROPHILS % (AUTO) 65.7 % (43.0-81.0); PLATELET COUNT (AUTO) 328 /CMM (150-450); RDW COEFFICIENT OF VARIATION 19.3 (11.5-15.0); RED BLOOD CELL COUNT(AUTO) 3.16 MIL/uL (4.0-5.2); WHITE BLOOD COUNT (AUTO) 8.9 K/uL (4.3-11.0)
--- NOTE | 2017-04-25 07:29 | NUR ---
MS/RN CLOSING NOTES PT ASLEEP, AROUSABLE TO TOUCH/LIGHT PAIN. A/OX1, CONFUSED. ON ROOM AIR, BREATHING EVEN AND UNLABORED. NO S/S OF SOB OR PAIN. NO FACIAL GRIMACING NOTED. JANET MIDLINE PATENT AND INTACT. CRAIG IN PLACE AND DRAINING TO GRAVITY. WOUND CARE PROVIDED ORDERED. TURNED/REPOSITIONED Q2H AND HEELS OFFLOADED AT ALL TIMES. NO SIGNIFICANT CHANGES DURING SHIFT. MADE PT COMFORTABLE. BED IN LOW/LOCKED POSITION WITH CALL LIGHT IN REACH. SIDE RAILS UPX2 AND BED ALARM ON FOR SAFETY. ENDORSED TO AM SHIFT KYUNG.
[2017-04-25 08:00] VITALS: BP 120/60
[2017-04-25] MEDS: CLOTRIMAZOLE/BETAMETASONE DIPROPIONATE 15 GM TUBE TP SCH (08:29)
[2017-04-25] MEDS: MULTIVIT, IRON, MIN NO. 8, FA 1 TAB PO SCH (08:30)
[2017-04-25] MEDS: ASPIRIN 81 MG TAB.CHEW PO SCH (08:30)
[2017-04-25] MEDS: ZINC SULFATE 220 MG CAPSULE PO SCH (08:30)
[2017-04-25 08:31] VITALS: BP 120/60
[2017-04-25] MEDS: METOPROLOL TARTRATE 25 MG TABLET PO SCH (08:31)
[2017-04-25] MEDS: ASCORBIC ACID 500 MG TABLET PO SCH (08:31)
[2017-04-25] MEDS: FUROSEMIDE 20 MG/2 ML VIAL IV SCH (08:31)
[2017-04-25] MEDS: DOCUSATE SODIUM 100 MG CAPSULE PO SCH (08:31)
[2017-04-25] MEDS: PANTOPRAZOLE 40 MG TABLET.DR PO SCH (08:31)
[2017-04-25] MEDS: MAGNESIUM OXIDE 400 MG TABLET PO SCH (08:31)
[2017-04-25] MEDS: TRAMADOL HCL 50 MG TABLET PO SCH (08:31)
[2017-04-25] MEDS: LACTOBACILLUS RHAMNOSUS GG 1 EACH CAP.SPRINK PO SCH (08:31)
[2017-04-25] MEDS: Z GUARD REMEDY 2 OZ OINT TP SCH (08:32)
[2017-04-25] MEDS: MEROPENEM 500 MG in IV NS 0.9% 50 ML IV SCH (08:33)
[2017-04-25] MEDS: APIXABAN 2.5 MG TABLET PO SCH (08:33)
[2017-04-25] MEDS: LORAZEPAM INJ 2 MG/ML VIAL IVP PRN (09:10)
[2017-04-25 10:23] LABS: BAND % (MANUAL) 1 % (0.0-5.0); EOSINOPHILS % (MANUAL) 3 % (0-4); LYMPHOCYTES % (MANUAL) 13 % (16-48); MONOCYTES % (MANUAL) 3 % (0-11.0); NEUTROPHILS % (MANUAL) 80 (42-76)
--- NOTE | 2017-04-25 14:43 | NUR ---
RN NOTES CHANGED DRESSING AGAIN DRESSING WAS SATURATED WITH DRAINAGE. TOOL PICTURES FOR DISCHARGE, BUT WAS UNABLE TO GET A FULL SET OF DISCHARGE PHOTOS PATIENT BECAME EXTREMELY AGITATED AND COMBATIVE. REMOVED CRAIG PER MD ORDER.
--- NOTE | 2017-04-25 15:49 | NUR ---
SUBSTANCE ABUSE RN NOTES ALL PAPERWORK SIGNED AND BELONGINGS CHECKED BY TWO RNS PATIENT IS CONFUSED AND UNABLE. WAS NOT ABLE TO GET ALL DISCHARGE PICTURES PATIENT IS VERY AGITATED AND COMBATIVE AT THIS TIME AND WHEN ATTEMPTING TO TAKE PICTURES PRIOR TO DC. IV IS LEFT IN PLACE PATIENT IS TO HAVE 3 MORE DAYS OF IV ABX WHILE AT FACILITY. PATIENT LEFT IN STABLE CONDITION, VIA GURNEY WITH 2EMTS. NO SOB OR DISTRESS NOTED. PATIENT DOES NOT APPEAR TO BE IN PAIN. PATIENT DISCHARGED TO [facility]. SON, BILL NOTIFIED OF TRANSFER.
== END 2017-04-25 15:15 | DRG 853 ==
LOC: ER 10:15 → TELE1 13:23 → MEDSG1 04-19 13:15 → MEDSG2 04-24 11:29
PROVIDERS: ADMIT Legal Medicine; ATTEND Legal Medicine
PROC: 0KDT0ZZ Extraction of Left Lower Leg Muscle, Open Approach (ICD-10-PCS; principal; 2017-04-18)
PROC: 0QDH0ZZ Extraction of Left Tibia, Open Approach (ICD-10-PCS; 2017-04-18)
PROC: 05H533Z Insertion of Infusion Device into Right Subclavian Vein, Percutaneous Approach (ICD-10-PCS; 2017-04-25)
DX: A41.9 Sepsis, unspecified organism (principal); R53.2 Functional quadriplegia; G93.41 Metabolic encephalopathy; D68.59 Other primary thrombophilia; F03.91 Unspecified dementia, unspecified severity, with behavioral disturbance; L02.416 Cutaneous abscess of left lower limb; I48.2 Chronic atrial fibrillation; I13.0 Hypertensive heart and chronic kidney disease with heart failure and stage 1 through stage 4 chronic kidney disease, or unspecified chronic kidney disease; I50.9 Heart failure, unspecified; I83.228 Varicose veins of left lower extremity with both ulcer of other part of lower extremity and inflammation; L03.116 Cellulitis of left lower limb; L97.829 Non-pressure chronic ulcer of other part of left lower leg with unspecified severity; B96.20 Unspecified Escherichia coli [E. coli] as the cause of diseases classified elsewhere; I25.10 Atherosclerotic heart disease of native coronary artery without angina pectoris; E66.9 Obesity, unspecified; E87.6 Hypokalemia; K21.9 Gastro-esophageal reflux disease without esophagitis; N18.9 Chronic kidney disease, unspecified; Z79.01 Long term (current) use of anticoagulants; Z88.0 Allergy status to penicillin; Z88.2 Allergy status to sulfonamides; Z68.26 Body mass index [BMI] 26.0-26.9, adult; D63.8 Anemia in other chronic diseases classified elsewhere; Z16.12 Extended spectrum beta lactamase (ESBL) resistance; Z79.899 Other long term (current) drug therapy
CPT/HCPCS: 36415; 71010-TC; 73590-TC; 80048-TC; 80076-TC; 81000-TC; 83605-TC; 83735-TC; 84100-TC; 84484-TC; 85025-TC; 85730-TC; 87040-TC; 87070-TC; 87081-TC; 87086-TC; 87186-TC; A4216; A4217; A4606; A6253; A6402; A6403; A6407; J0713; J1170; J1580; J1940; J1956; J2060; J2185; J2270; J2405; J3370; J3475; J3480; J3490; J7030; J7040; J7060; Z7610